=== PATIENT | female | born 1980 | race Caucasian/White ===

== ENCOUNTER 2019-09-25 10:18 | Inpatient (IN) | payer MEDICARE, OTHER ==
[~2019-09-25] VITALS: Ht 167.6 cm; Wt 63.7 kg
[2019-09-25] MEDS ORDERED: HYDROmorphone 2 MG/ML VIAL IV ONE ×3 (11:00→14:30)
[2019-09-25 11:30] LABS: BASO # 0.1 x10^3/uL (0.0-0.2); BASO % 1 % (0-3); EOS # 0.2 x10^3/uL (0.0-0.7); EOS % 2 % (0-3); HEMOGLOBIN 12.7 g/dL (12.0-15.5); LYMPH % 26 % (24-48); MEAN CORPUSCULAR HEMOGLOBIN 30 pg (25-35); MEAN CORPUSCULAR HGB CONC 34 g/dL (31-37); MEAN CORPUSCULAR VOLUME 91 fL (79-100); MONO % 9 % (0-9); NEUT # 7.1 x10^3/uL (1.8-7.7); NEUT % 62 % (31-73); PLATELET COUNT 274 x10^3/uL (140-400); RED BLOOD COUNT 4.19 x10^6/uL (3.50-5.40); RED CELL DISTRIBUTION WIDTH 13.7 % (11.5-14.5); WHITE BLOOD COUNT 11.5 x10^3/uL (4.0-11.0)
--- NOTE | 2019-09-25 11:38 | RAD ---
DUPLEX SONOGRAPHY OF THE PERIPHERAL ARTERIAL SYSTEM OF THE LEFT LOWER EXTREMITY Clinical indications: Left foot pain and coldness with decreased capillary refill. No palpable pulses. Findings: Duplex sonography of the peripheral arterial system of the left lower extremity including mercado scale and color flow and spectral waveform analysis was performed.Triphasic and biphasic waveforms are seen. The left peroneal artery is not visualized and therefore may be occluded. No significant stenosis is seen elsewhere. The measurements were performed using the NASCET criteria. Peak systolic flow velocities are as follows: Left leg: common femoral artery- 178 cm/sec, profunda femoral artery -108 cm/sec, proximal superficial femoral artery- 141cm/sec, mid superficial femoral artery- 118 cm/sec, distal superficial femoral artery- 126 cm/sec, popliteal artery -72 cm/sec, proximal posterior tibial artery -57 cm/sec, distal posterior tibial artery- 32 cm/sec, peroneal artery -0 cm/sec, anterior tibial artery -63 cm/sec, dorsalis pedis artery- 38 cm/sec. Impression: Left peroneal artery occlusion. Electronically signed by: Vinnie Love MD (09/25/2019 11:35 AM) [facility]
[2019-09-25 11:41] LABS: CALCIUM 9.1 mg/dL (8.5-10.1); CREATININE 0.6 mg/dL (0.6-1.0); GFR 113.1; POTASSIUM 3.7 mmol/L (3.5-5.1)
--- NOTE | 2019-09-25 11:46 | PHYS DOC ---
Past Medical History Past Medical History: Other Additional Past Medical Histor: ALL, NEUOPATHY, DDD, SCIATICA Past Surgical History: Cancer Surgery, Cholecystectomy, Other Additional Past Surgical Histo: GASTRIC BYPASS Smoking Status: Current Every Day Smoker Alcohol Use: None Adult General Chief Complaint Chief Complaint: FOOT INJURY PAIN HPI HPI Patient is a 38 year old female who presents to the emergency Department today with complaints of increased left foot swelling and pain and inability to move left ankle or left foot. Patient states that the symptoms first started about 3 weeks ago, she states at that time she was unable to move her foot. Patient states she was seen at [facility] a week ago and had ultrasound was told there was no blood clot. She currently rates her pain a 7 out of 10 on the pain scale she denies any alleviating factors. The pain increases with palpation. Patient states she has tried taking her Dilaudid at home without any relief of her pain. Pt reports a hx of ALL, neuropathy, DDD, and sciatica. She denies any known injury. Review of Systems Review of Systems Constitutional: Denies fever or chills [] Eyes: Denies redness, or eye pain [] HENT: Denies nasal congestion or sore throat [] Respiratory: Denies cough or shortness of breath [] Cardiovascular: No additional information not addressed in HPI [] GI: Denies abdominal pain, nausea, vomiting, or diarrhea [] Musculoskeletal: Denies back pain; see HPI[] Integument: Denies rash or skin lesions; see HPI[] Neurologic: Denies headache, see HPI All other systems were reviewed and found to be within normal limits, except as documented in this note. Current Medications Current Medications Current Medications Medications (Trade) Dose Ordered Sig/Barbie Start Time Stop Time Status Last Admin Dose Admin Hydromorphone HCl (Dilaudid) 1 mg 1X ONCE 09/25/19 11:00 09/25/19 11:01 DC 09/25/19 11:35 1 MG Allergies Allergies Allergies Coded Allergies Type Severity Reaction Last Updated Verified aspirin Allergy Unknown 09/25/19 Yes ibuprofen Allergy Unknown 09/25/19 Yes Physical Exam Physical Exam Constitutional: Well developed, well nourished, no acute distress, non-toxic appearance, appears to be in pain [] HENT: Normocephalic, atraumatic, bilateral external ears normal, nose normal. [] Eyes: PERRLA, EOMI, conjunctiva normal, no discharge. [] Neck: Normal range of motion,no stridor. [] Cardiovascular:Heart rate regular rhythm, no murmur [] Lungs & Thorax: Bilateral breath sounds clear to auscultation, Respirations even and unlabored, no retractions, no respiratory distress [] Skin: Warm, dry; LLE mottled and cool to touch, cap refill >3 seconds Extremities: LLE tender to palpation, no obvious deformity, no palpable pedal or posterial tibial pulses, strong doppler pedal and posterior tibial pulses, pt unable to move L foot or L ankle, 2+ edema [] Neurologic: Alert and oriented X 3, no focal deficits noted. [] Psychologic: Affect normal, judgement normal, mood normal. [] Current Patient Data Vital Signs Vital Signs Date Time Temp Pulse Resp B/P (MAP) Pulse Ox O2 Delivery O2 Flow Rate FiO2 09/25/19 12:05 18 98 Room Air 09/25/19 12:00 90 127/74 (91) 09/25/19 10:43 98.4 98.4 Lab Values Laboratory Tests Test 09/25/19 11:19 09/25/19 11:20 White Blood Count 11.5 x10^3/uL (4.0-11.0) H Red Blood Count 4.19 x10^6/uL (3.50-5.40) Hemoglobin 12.7 g/dL (12.0-15.5) Hematocrit 38.0 % (36.0-47.0) Mean Corpuscular Volume 91 fL (79-100) Mean Corpuscular Hemoglobin 30 pg (25-35) Mean Corpuscular Hemoglobin Concent 34 g/dL (31-37) Red Cell Distribution Width 13.7 % (11.5-14.5) Platelet Count 274 x10^3/uL (140-400) Neutrophils (%) (Auto) 62 % (31-73) Lymphocytes (%) (Auto) 26 % (24-48) Monocytes (%) (Auto) 9 % (0-9) Eosinophils (%) (Auto) 2 % (0-3) Basophils (%) (Auto) 1 % (0-3) Neutrophils # (Auto) 7.1 x10^3/uL (1.8-7.7) Lymphocytes # (Auto) 3.0 x10^3/uL (1.0-4.8) Monocytes # (Auto) 1.0 x10^3/uL (0.0-1.1) Eosinophils # (Auto) 0.2 x10^3/uL (0.0-0.7) Basophils # (Auto) 0.1 x10^3/uL (0.0-0.2) Prothrombin Time 12.6 SEC (11.7-14.0) Prothrombin Time INR 1.0 (0.8-1.1) Activated Partial Thromboplast Time 30 SEC (24-38) Sodium Level 139 mmol/L (136-145) Potassium Level 3.7 mmol/L (3.5-5.1) Chloride Level 103 mmol/L (98-107) Carbon Dioxide Level 27 mmol/L (21-32) Anion Gap 9 (6-14) Blood Urea Nitrogen 7 mg/dL (7-20) Creatinine 0.6 mg/dL (0.6-1.0) Estimated GFR (Cockcroft-Gault) 113.1 BUN/Creatinine Ratio 12 (6-20) Glucose Level 91 mg/dL (70-99) Calcium Level 9.1 mg/dL (8.5-10.1) Total Bilirubin 0.8 mg/dL (0.2-1.0) Aspartate Amino Transferase (AST) 16 U/L (15-37) Alanine Aminotransferase (ALT) 22 U/L (14-59) Alkaline Phosphatase 51 U/L (46-116) Total Protein 6.7 g/dL (6.4-8.2) Albumin 3.3 g/dL (3.4-5.0) L Albumin/Globulin Ratio 1.0 (1.0-1.7) Urine Test Negative (NEG) Laboratory Tests 09/25/19 11:19 Laboratory Tests 09/25/19 11:19 EKG EKG [] Radiology/Procedures Radiology/Procedures PROCEDURE: DUPLEX LOWER EXT ARTERIAL LEFT DUPLEX SONOGRAPHY OF THE PERIPHERAL ARTERIAL SYSTEM OF THE LEFT LOWER EXTREMITY Clinical indications: Left foot pain and coldness with decreased capillary refill. No palpable pulses. Findings: Duplex sonography of the peripheral arterial system of the left lower extremity including mercado scale and color flow and spectral waveform analysis was performed.Triphasic and biphasic waveforms are seen. The left peroneal artery is not visualized and therefore may be occluded. No significant stenosis is seen elsewhere. The measurements were performed using the NASCET criteria. Peak systolic flow velocities are as follows: Left leg: common femoral artery- 178 cm/sec, profunda femoral artery -108 cm/sec, proximal superficial femoral artery- 141cm/sec, mid superficial femoral artery- 118 cm/sec, distal superficial femoral artery- 126 cm/sec, popliteal artery -72 cm/sec, proximal posterior tibial artery -57 cm/sec, distal posterior tibial artery- 32 cm/sec, peroneal artery -0 cm/sec, anterior tibial artery -63 cm/sec, dorsalis pedis artery- 38 cm/sec. Impression: Left peroneal artery occlusion.[] Course & Med Decision Making Course & Med Decision Making Pertinent Labs and Imaging studies reviewed. (See chart for details) 1200- Spoke with Dr. Allison and advised of peroneal artery occlusion of LLE, mottled appearance, non-palpable pedal and posterior tibial pulses; will order heparin drip per protocol and admit patient to hospitalist. [address] Peterson who is the admitting physician, and care was assumed following discussion of patient. Patient's vital signs stable. Patient remains afebrile, appears nontoxic, respirations even and unlabored. Patient will be admitted to the ICU floor. Patient's case and plan of care also discussed with Dr. Vines 1255- Dr. Bellamy at bedside with patient will order CT angio of abd/pelvis/lower extremities. [] Dragon Disclaimer Dragon Disclaimer This electronic medical record was generated, in whole or in part, using a voice recognition dictation system. Departure Departure Impression: Primary Impression: Peroneal artery occlusion, right Additional Impression: Right leg pain Disposition: ADMITTED INPATIENT Admitting Physician: SAMANTHA (Nicholas) Condition: STABLE Referrals: RONEL LEWIS DO (PCP) Problem Qualifiers CONNIE REYES APRN Sep 25, 2019 11:46
[2019-09-25 11:47] LABS: ALBUMIN 3.3 g/dL (3.4-5.0); TOTAL BILIRUBIN 0.8 mg/dL (0.2-1.0); TOTAL PROTEIN 6.7 g/dL (6.4-8.2)
[2019-09-25 11:54] LABS: PROTHROMBIN TIME PATIENT 12.6 SEC (11.7-14.0)
[2019-09-25] MEDS ORDERED: HEPARIN for IV BOLUS 10,000 UNIT/10 ML VIAL. IV ONE (12:15)
[2019-09-25] MEDS ORDERED: HEPARIN for IV BOLUS 10,000 UNIT/10 ML VIAL. IV PRN (12:15)
--- NOTE | 2019-09-25 12:44 | RAD ---
Left lower extremity venous Doppler dated 09/25/2019. No comparison available. Clinical data indication: Left leg pain. FINDINGS: Grayscale, color-flow and spectral waveform analysis performed to include the deep venous system of the left lower extremity. There is normal compressibility, phasicity and augmentation of flow throughout. No filling defects are seen. IMPRESSION: No evidence of left lower extremity deep vein thrombosis. Electronically signed by: Albert Medina MD (09/25/2019 12:41 PM) [id number]
[2019-09-25] MEDS: HEPARIN 25,000UTS/250ML PREMIX 250 ML IV PRN (12:59)
[2019-09-25 13:25] LABS: U PREG PATIENT NEGATIVE (NEG)
[2019-09-25] MEDS ORDERED: IOHEXOL 350 MG/ML 100 ML VIAL. IV ONE (14:00)
[2019-09-25] MEDS ORDERED: CONTRAST GIVEN. MC PRN (14:00)
[2019-09-25] MEDS ORDERED: ACETAMINOPHEN 500 MG TABLET PO ONE (14:45)
--- NOTE | 2019-09-25 15:21 | PDOC2 ---
CONSULT Date of Consult Date of Consult DATE: 09/25/19 TIME: 15:06 Reason for Consult Reason for Consult: LLE pain, peroneal occlusion Identification/Chief Complaint Chief Complaint LLE pain Source Source: Patient History of Present Illness Reason for Visit: 38-year old female with significant medical history of chronic back problems on high doses of chronic pain meds, neuropathy, disc degeneration of back and bilateral hips per report, sciatica. She presents with LLE pain, swelling and paralysis x3 weeks. First noted as paralysis three weeks ago, she began walking with crutches and reportedly went into her doctor, [facility] and also her pain doctor for evaluation of this. She reports they noted elevated Ddimer in ER, however only did venous duplex and was negative ? per report. Since onset she has had progressive swelling and pain with some associated bruising around her ankle and back of her lower leg. She denies history of blood clots, bleeding disorders. She denies family history of same, does have family history of stroke. Past Medical History Past Medical History As in HPI Past Surgical History Past Surgical History No vascular surgeries. Family History Family History Stroke, fathers side Current Medications Current Medications Current Medications Hydromorphone HCl (Dilaudid) 1 mg 1X ONCE IV Last administered on 09/25/19at 11:35; Start 09/25/19 at 11:00; Stop 09/25/19 at 11:01; Status DC Heparin Sodium (Porcine) (Heparin Sodium) 4,700 unit 1X ONCE IV Last administered on 09/25/19at 12:40; Start 09/25/19 at 12:15; Stop 09/25/19 at 12:25; Status DC Heparin Sodium/ Dextrose 250 ml @ 9.44 mls/hr CONT PRN IV PER PROTOCOL Last administered on 09/25/19at 12:59; Start 09/25/19 at 12:15 Heparin Sodium (Porcine) (Heparin Sodium) 1,750 unit PRN Q6HRS PRN IV FOR UFH LEVEL LESS THAN 0.2; Start 09/25/19 at 12:15 Heparin Sodium (Porcine) (Heparin Sodium) 900 unit PRN Q6HRS PRN IV FOR UFH LEVEL 0.2 - 0.29; Start 09/25/19 at 12:15 Hydromorphone HCl (Dilaudid) 1 mg 1X ONCE IV Last administered on 09/25/19at 12:38; Start 09/25/19 at 12:30; Stop 09/25/19 at 12:31; Status DC Iohexol (Omnipaque 350 Mg/ml) 95 ml 1X ONCE IV Last administered on 09/25/19at 13:53; Start 09/25/19 at 14:00; Stop 09/25/19 at 14:01; Status DC Info (CONTRAST GIVEN -- Rx MONITORING) 1 each PRN DAILY PRN MC SEE COMMENTS; Start 09/25/19 at 14:00; Stop 09/27/19 at 13:59 Hydromorphone HCl (Dilaudid) 1 mg 1X ONCE IV Last administered on 09/25/19at 14:40; Start 09/25/19 at 14:30; Stop 09/25/19 at 14:31; Status DC Hydromorphone HCl (Dilaudid) 8 mg PRN Q4HRS PRN PO PAIN; Start 09/25/19 at 14:45; Status UNV Acetaminophen (Tylenol) 1,000 mg 1X ONCE PO ; Start 09/25/19 at 14:45; Stop 09/25/19 at 14:46; Status DC Acetaminophen (Tylenol) 650 mg PRN Q6HRS PRN PO pain; Start 09/25/19 at 14:45 Gabapentin (Neurontin) 800 mg TID PO ; Start 09/25/19 at 14:45; Status UNV Cyclobenzaprine HCl (Flexeril) 10 mg PRN Q6HRS PRN PO MUSCLE SPASMS; Start 09/25/19 at 14:45; Status UNV Allergies Allergies: Coded Allergies: aspirin (Verified Allergy, Unknown, 09/25/19) ibuprofen (Verified Allergy, Unknown, 09/25/19) ROS General: YES: Fatigue; No: Chills HEENT: No: Heacaches Hematological and Lymphatic: YES: Brusing; No: Bleeding Problems, Blood Clots, Pallor Respiratory: No: Cough, Hemoptysis, Shortness of breath Cardiovascular: yes Edema; No Chest Pain, No Palpitations Gastrointestinal: No Nausea, No Vomiting, No Abdominal Pain Genitourinary: YES Incontinence Musculoskeletal: Yes Gait Disturbance Neurological: Yes Gait Disturbance Skin: No Mottling, No Rash, No Skin Lesion Changes Physical Exam General: Alert, Oriented X3, Cooperative, mild distress (Intermittent crying) HEENT: Atraumatic Lungs: Normal air movement Heart: Regular rate Abdomen: Soft, No tenderness Extremities: No cyanosis, Other (Bilateral femoral pulses normal, left foot mild swelling, PT and DP signals strong with doppler, foot warm. Right foot warm. She has exquisite tenderness to Left lower leg from knee down, including to light touch, there is mild diffuse associated redness to lower leg and mild diffuse edema from knee down. ) Skin: No breakdown, No significant lesion Neuro: Other (Right LE strength normal, LLE dorsi and plantar flexion strength 1/5, can slightly wiggle toes. Left foot with limited sensation compared to right. ) Psych/Mental Status: Mental status NL, Mood NL MUSCULOSKELETAL: Other (Swelling LLE, strength as noted above) Vitals VITALS Vital Signs Date Time Temp Pulse Resp B/P (MAP) Pulse Ox O2 Delivery O2 Flow Rate FiO2 09/25/19 14:40 18 Room Air 09/25/19 13:00 118/81 (93) 09/25/19 12:00 90 97 09/25/19 10:43 98.4 98.4 Labs Labs Laboratory Tests Test 09/25/19 11:19 09/25/19 11:20 White Blood Count 11.5 x10^3/uL (4.0-11.0) Red Blood Count 4.19 x10^6/uL (3.50-5.40) Hemoglobin 12.7 g/dL (12.0-15.5) Hematocrit 38.0 % (36.0-47.0) Mean Corpuscular Volume 91 fL (79-100) Mean Corpuscular Hemoglobin 30 pg (25-35) Mean Corpuscular Hemoglobin Concent 34 g/dL (31-37) Red Cell Distribution Width 13.7 % (11.5-14.5) Platelet Count 274 x10^3/uL (140-400) Neutrophils (%) (Auto) 62 % (31-73) Lymphocytes (%) (Auto) 26 % (24-48) Monocytes (%) (Auto) 9 % (0-9) Eosinophils (%) (Auto) 2 % (0-3) Basophils (%) (Auto) 1 % (0-3) Neutrophils # (Auto) 7.1 x10^3/uL (1.8-7.7) Lymphocytes # (Auto) 3.0 x10^3/uL (1.0-4.8) Monocytes # (Auto) 1.0 x10^3/uL (0.0-1.1) Eosinophils # (Auto) 0.2 x10^3/uL (0.0-0.7) Basophils # (Auto) 0.1 x10^3/uL (0.0-0.2) Prothrombin Time 12.6 SEC (11.7-14.0) Prothromb Time International Ratio 1.0 (0.8-1.1) Activated Partial Thromboplast Time 30 SEC (24-38) Sodium Level 139 mmol/L (136-145) Potassium Level 3.7 mmol/L (3.5-5.1) Chloride Level 103 mmol/L (98-107) Carbon Dioxide Level 27 mmol/L (21-32) Anion Gap 9 (6-14) Blood Urea Nitrogen 7 mg/dL (7-20) Creatinine 0.6 mg/dL (0.6-1.0) Estimated GFR (Cockcroft-Gault) 113.1 BUN/Creatinine Ratio 12 (6-20) Glucose Level 91 mg/dL (70-99) Calcium Level 9.1 mg/dL (8.5-10.1) Total Bilirubin 0.8 mg/dL (0.2-1.0) Aspartate Amino Transf (AST/SGOT) 16 U/L (15-37) Alanine Aminotransferase (ALT/SGPT) 22 U/L (14-59) Alkaline Phosphatase 51 U/L (46-116) Total Protein 6.7 g/dL (6.4-8.2) Albumin 3.3 g/dL (3.4-5.0) Albumin/Globulin Ratio 1.0 (1.0-1.7) Urine Test Negative (NEG) Laboratory Tests Test 09/25/19 11:19 09/25/19 11:20 White Blood Count 11.5 x10^3/uL (4.0-11.0) Red Blood Count 4.19 x10^6/uL (3.50-5.40) Hemoglobin 12.7 g/dL (12.0-15.5) Hematocrit 38.0 % (36.0-47.0) Mean Corpuscular Volume 91 fL (79-100) Mean Corpuscular Hemoglobin 30 pg (25-35) Mean Corpuscular Hemoglobin Concent 34 g/dL (31-37) Red Cell Distribution Width 13.7 % (11.5-14.5) Platelet Count 274 x10^3/uL (140-400) Neutrophils (%) (Auto) 62 % (31-73) Lymphocytes (%) (Auto) 26 % (24-48) Monocytes (%) (Auto) 9 % (0-9) Eosinophils (%) (Auto) 2 % (0-3) Basophils (%) (Auto) 1 % (0-3) Neutrophils # (Auto) 7.1 x10^3/uL (1.8-7.7) Lymphocytes # (Auto) 3.0 x10^3/uL (1.0-4.8) Monocytes # (Auto) 1.0 x10^3/uL (0.0-1.1) Eosinophils # (Auto) 0.2 x10^3/uL (0.0-0.7) Basophils # (Auto) 0.1 x10^3/uL (0.0-0.2) Prothrombin Time 12.6 SEC (11.7-14.0) Prothromb Time International Ratio 1.0 (0.8-1.1) Activated Partial Thromboplast Time 30 SEC (24-38) Sodium Level 139 mmol/L (136-145) Potassium Level 3.7 mmol/L (3.5-5.1) Chloride Level 103 mmol/L (98-107) Carbon Dioxide Level 27 mmol/L (21-32) Anion Gap 9 (6-14) Blood Urea Nitrogen 7 mg/dL (7-20) Creatinine 0.6 mg/dL (0.6-1.0) Estimated GFR (Cockcroft-Gault) 113.1 BUN/Creatinine Ratio 12 (6-20) Glucose Level 91 mg/dL (70-99) Calcium Level 9.1 mg/dL (8.5-10.1) Total Bilirubin 0.8 mg/dL (0.2-1.0) Aspartate Amino Transf (AST/SGOT) 16 U/L (15-37) Alanine Aminotransferase (ALT/SGPT) 22 U/L (14-59) Alkaline Phosphatase 51 U/L (46-116) Total Protein 6.7 g/dL (6.4-8.2) Albumin 3.3 g/dL (3.4-5.0) Albumin/Globulin Ratio 1.0 (1.0-1.7) Urine Test Negative (NEG) Assessment/Plan Assessment/Plan Left peroneal artery occlusion via US 39-year-old female with LLE weakness and pain x 3 weeks. It does not seem that the peroneal occlusion would be contributing to her symptoms with patent anterior tib and posterior tib arteries and strong doppler signals in her foot, this is very unlikely to be ischemic symptoms. However she does have mild LLE edema, erythema and exquisite tenderness. Her calf is soft, not likely compartment syndrome, venous duplex was negative for DVT. I also considered complex regional pain syndrome. She has been started on heparin and is being admitted. Will await CTA images to review and discuss with surgeon who will also see patient. MANUEL MARROQUIN Sep 25, 2019 15:21
--- NOTE | 2019-09-25 15:24 | RAD ---
CTA abdomen pelvis and bilateral lower extremity runoff dated 09/25/2019. No comparison available. CLINICAL INDICATION: Left lower extremity clot. Inability to move. Leg pain. Foot pain and numbness. TECHNIQUE: Contiguous axial imaging of the abdomen pelvis and bilateral lower extremity performed following the intravenous administration of 95 cc Omnipaque 350. Study was performed as dedicated CTA with thin cut coronal and sagittal MIPS reconstructions and 3-D rotational reconstruction. One or more of the following individualized dose reduction techniques were utilized for this examination: 1. Automated exposure control 2. Adjustment of the mA and/or kV according to patient size 3. Use of iterative reconstruction technique FINDINGS: Contrast bolus is adequate. The abdominal aorta is normal in caliber. There is some luminal irregularity throughout suggestive of mild atherosclerotic plaquing. No evidence of aneurysm. The celiac artery and SMA are patent. Bilateral renal arteries are patent. Suspected mild narrowing of the GAY at its origin. The bilateral common iliac arteries are patent. There is mild calcific plaque at the right iliac bifurcation. No significant stenosis of the internal or external iliac arteries. The left common femoral artery and profundus femoris are patent. No significant stenosis of the left superficial femoral artery or popliteal artery. There is early origin of the anterior tibial artery at the knee which is otherwise patent. The tibioperoneal trunk, posterior tibial and peroneal arteries are not well evaluated due to asymmetric venous opacification of the left calf. The posterior tibial artery and anterior tibial artery are patent to the ankle. The dorsalis pedis is patent. The peroneal artery on the left is somewhat small and poorly visualized but otherwise grossly patent. There is some asymmetric edema within the left calf musculature and the left calf subcutaneous tissues with some prominent venous collaterals. The right common femoral artery and profundus femoris are patent. Right superficial femoral artery and popliteal artery are patent. There is a three-vessel runoff of the right calf. Limited images of the lung bases are clear. Heart size within normal limits. No pleural or pericardial effusion. Calcified granuloma at the left base. Liver, spleen, pancreas, adrenal glands and kidneys are unremarkable. No hydronephrosis. The gallbladder is surgically absent. Postoperative changes of the stomach. GI tract is normal in caliber. No wall thickening. No inflammatory changes in the mesentery. The appendix is normal in caliber. No ascites or lymphadenopathy. Images of pelvis show nondistended urinary bladder. Rim-enhancing cyst at the right ovary measures 3.2 cm. There is a small amount of free fluid. No pelvic adenopathy. Bone windows show no acute findings. Mild lower lumbar spondylosis. IMPRESSION: 1. No evidence of hemodynamically significant arterial stenosis. The dorsalis pedis and posterior tibial arteries of the left ankle are patent. The left peroneal artery is somewhat small and difficult to evaluate due to premature venous filling on the left but is otherwise grossly patent. 2. There is some asymmetric edema within the left calf musculature and subcutaneous tissues with prominent venous collaterals. Consider venous reflux or other inflammatory process. 3. Premature atherosclerotic changes of the abdominal aorta and right iliac system. 4. There is a 3.2 cm right ovarian cyst. Small amount of free pelvic fluid. Electronically signed by: Albert Medina MD (09/25/2019 3:09 PM) [email or web address]
[2019-09-25] MEDS: ACETAMINOPHEN 325 MG TABLET. PO PRN (16:03)
[2019-09-25] MEDS: CYCLOBENZAPRINE 10 MG TABLET. PO PRN (16:03)
[2019-09-25] MEDS: HYDROmorphone 4 MG TABLET PO PRN ×2 (16:21→20:21)
[2019-09-25] MEDS: GABAPENTIN 400 MG CAPSULE. PO SCH ×2 (16:21→20:19)
--- NOTE | 2019-09-25 16:41 | PDOC1 ---
History and Physical Date of Admission Date of Admission DATE: 09/25/19 TIME: 16:39 Source Source: Caregiver (mom), Chart review, Patient History of Present Illness History of Present Illness Carol is a 38 year old female who presents to the emergency Department today with complaints of increased left foot swelling and pain and inability to move left ankle or left foot. she has worsning pain over 3 weeks, but now was unable to move her foot. fPatient states she was seen at [facility] ER a week ago and had ultrasound was told there was no blood clot. I reviewed that note with her how she talked to Dr. Ken. this AM, foot was cold, she was unable to move the leg, and complaisn of 10/10 pain she went into detail about her facundo regimen ,how she has been on 120 of methadone before, and how her pain is different and no one usually understands her pain. she follows pain management clinic at [facility], reports taking 8mg dilaudid TID, I cannot find that record int he terezart, . Pt reports a hx of ALL, neuropathy, DDD, and sciatica. Past Medical History Past Medical History chronic pain, lumbar disk disease, large amount of opiate use for pain control, narcotic dependence Family History Family History: No Significant Social History Smoke: <1 pack per day ALCOHOL: none Drugs: None Current Medications Current Medications Current Medications Hydromorphone HCl (Dilaudid) 1 mg 1X ONCE IV Last administered on 09/25/19at 11:35; Start 09/25/19 at 11:00; Stop 09/25/19 at 11:01; Status DC Heparin Sodium (Porcine) (Heparin Sodium) 4,700 unit 1X ONCE IV Last administered on 09/25/19at 12:40; Start 09/25/19 at 12:15; Stop 09/25/19 at 12:25; Status DC Heparin Sodium/ Dextrose 250 ml @ 9.44 mls/hr CONT PRN IV PER PROTOCOL Last administered on 09/25/19at 12:59; Start 09/25/19 at 12:15 Heparin Sodium (Porcine) (Heparin Sodium) 1,750 unit PRN Q6HRS PRN IV FOR UFH LEVEL LESS THAN 0.2; Start 09/25/19 at 12:15 Heparin Sodium (Porcine) (Heparin Sodium) 900 unit PRN Q6HRS PRN IV FOR UFH LEVEL 0.2 - 0.29; Start 09/25/19 at 12:15 Hydromorphone HCl (Dilaudid) 1 mg 1X ONCE IV Last administered on 09/25/19at 12:38; Start 09/25/19 at 12:30; Stop 09/25/19 at 12:31; Status DC Iohexol (Omnipaque 350 Mg/ml) 95 ml 1X ONCE IV Last administered on 09/25/19at 13:53; Start 09/25/19 at 14:00; Stop 09/25/19 at 14:01; Status DC Info (CONTRAST GIVEN -- Rx MONITORING) 1 each PRN DAILY PRN MC SEE COMMENTS; Start 09/25/19 at 14:00; Stop 09/27/19 at 13:59 Hydromorphone HCl (Dilaudid) 1 mg 1X ONCE IV Last administered on 09/25/19at 14:40; Start 09/25/19 at 14:30; Stop 09/25/19 at 14:31; Status DC Hydromorphone HCl (Dilaudid) 8 mg PRN Q4HRS PRN PO SEVERE PAIN Last administered on 09/25/19at 16:21; Start 09/25/19 at 14:45 Acetaminophen (Tylenol) 1,000 mg 1X ONCE PO ; Start 09/25/19 at 14:45; Stop 09/25/19 at 14:46; Status DC Acetaminophen (Tylenol) 650 mg PRN Q6HRS PRN PO pain Last administered on 09/25/19at 16:03; Start 09/25/19 at 14:45 Gabapentin (Neurontin) 800 mg TID PO Last administered on 09/25/19at 16:21; Start 09/25/19 at 14:45 Cyclobenzaprine HCl (Flexeril) 10 mg PRN Q6HRS PRN PO MUSCLE SPASMS Last administered on 09/25/19at 16:03; Start 09/25/19 at 14:45 Allergies Allergies: Coded Allergies: aspirin (Verified Allergy, Unknown, 09/25/19) ibuprofen (Verified Allergy, Unknown, 09/25/19) ROS General: YES: Fatigue; No: Chills, Night Sweats, Malaise, Appetite, Other PSYCHOLOGICAL ROS: YES: Anxiety, Irritablity, Sleep disturbances; No: Behavioral Disorder, Concentration difficultie, Decreased libido, Depression, Disorientation, Hallucinations, Hostility, Memory difficulties, Mood Swings, Obsessive thoughts, Physical abuse, Sexual abuse, Suicidal ideation, Other Eyes: No Blurry vision, No Decreased vision, No Double vision, No Dry eyes, No Excessive tearing, No Eye Pain, No Itchy Eyes, No Loss of vision, No Photophobia, No Scotomata, No Uses contacts, No Uses glasses, No Other HEENT: No: Heacaches, Visual Changes, Hearing change, Nasal congestion, Nasal discharge, Oral lesions, Sinus pain, Sore Throat, Epistaxis, Sneezing, Snoring, Tinnitus, Vertigo, Vocal changes, Other Respiratory: No: Cough, Hemoptysis, Orthopnea, Pleuritic Pain, Shortness of breath, SOB with excertion, Sputum Changes, Stridor, Tachypnea, Wheezing, Other Cardiovascular: No Chest Pain, No Palpitations, No Orthopnea, No Paroxysmal Noc. Dyspnea, No Edema, No Lt Headedness, No Other Gastrointestinal: No Nausea, No Vomiting, No Abdominal Pain, No Diarrhea, No Constipation, No Melena, No Hematochezia, No Other Musculoskeletal: Yes Gait Disturbance, Yes Joint Swelling, Yes Muscle Pain, Yes Muscular Weakness, Yes Pain In: (leg, back) Neurological: Yes Gait Disturbance Skin: No Dry Skin, No Eczema, No Hair Changes, No Lumps, No Mole Changes, No Mottling, No Nail Changes, No Pruritus, No Rash, No Skin Lesion Changes, No Other, No Acne Physical Exam General: Alert, Cooperative, moderate distress, severe distress HEENT: PERRLA, EOMI Lungs: Clear to auscultation, Normal air movement Heart: no gallops Abdomen: Normal bowel sounds, Soft Extremities: No cyanosis, Other (was cold left lower leg, then warmed later and was hyperemic ) Skin: No breakdown Neuro: Normal speech, Sensation intact Psych/Mental Status: Other (upset, ) Vitals Vitals Vital Signs Date Time Temp Pulse Resp B/P (MAP) Pulse Ox O2 Delivery O2 Flow Rate FiO2 09/25/19 14:40 18 Room Air 09/25/19 13:08 97 09/25/19 13:00 118/81 (93) 09/25/19 12:00 90 09/25/19 10:43 98.4 98.4 Labs Labs Laboratory Tests Test 09/25/19 11:19 09/25/19 11:20 White Blood Count 11.5 x10^3/uL (4.0-11.0) Red Blood Count 4.19 x10^6/uL (3.50-5.40) Hemoglobin 12.7 g/dL (12.0-15.5) Hematocrit 38.0 % (36.0-47.0) Mean Corpuscular Volume 91 fL (79-100) Mean Corpuscular Hemoglobin 30 pg (25-35) Mean Corpuscular Hemoglobin Concent 34 g/dL (31-37) Red Cell Distribution Width 13.7 % (11.5-14.5) Platelet Count 274 x10^3/uL (140-400) Neutrophils (%) (Auto) 62 % (31-73) Lymphocytes (%) (Auto) 26 % (24-48) Monocytes (%) (Auto) 9 % (0-9) Eosinophils (%) (Auto) 2 % (0-3) Basophils (%) (Auto) 1 % (0-3) Neutrophils # (Auto) 7.1 x10^3/uL (1.8-7.7) Lymphocytes # (Auto) 3.0 x10^3/uL (1.0-4.8) Monocytes # (Auto) 1.0 x10^3/uL (0.0-1.1) Eosinophils # (Auto) 0.2 x10^3/uL (0.0-0.7) Basophils # (Auto) 0.1 x10^3/uL (0.0-0.2) Prothrombin Time 12.6 SEC (11.7-14.0) Prothromb Time International Ratio 1.0 (0.8-1.1) Activated Partial Thromboplast Time 30 SEC (24-38) Sodium Level 139 mmol/L (136-145) Potassium Level 3.7 mmol/L (3.5-5.1) Chloride Level 103 mmol/L (98-107) Carbon Dioxide Level 27 mmol/L (21-32) Anion Gap 9 (6-14) Blood Urea Nitrogen 7 mg/dL (7-20) Creatinine 0.6 mg/dL (0.6-1.0) Estimated GFR (Cockcroft-Gault) 113.1 BUN/Creatinine Ratio 12 (6-20) Glucose Level 91 mg/dL (70-99) Calcium Level 9.1 mg/dL (8.5-10.1) Total Bilirubin 0.8 mg/dL (0.2-1.0) Aspartate Amino Transf (AST/SGOT) 16 U/L (15-37) Alanine Aminotransferase (ALT/SGPT) 22 U/L (14-59) Alkaline Phosphatase 51 U/L (46-116) Total Protein 6.7 g/dL (6.4-8.2) Albumin 3.3 g/dL (3.4-5.0) Albumin/Globulin Ratio 1.0 (1.0-1.7) Urine Test Negative (NEG) Laboratory Tests Test 09/25/19 11:19 09/25/19 11:20 White Blood Count 11.5 x10^3/uL (4.0-11.0) Red Blood Count 4.19 x10^6/uL (3.50-5.40) Hemoglobin 12.7 g/dL (12.0-15.5) Hematocrit 38.0 % (36.0-47.0) Mean Corpuscular Volume 91 fL (79-100) Mean Corpuscular Hemoglobin 30 pg (25-35) Mean Corpuscular Hemoglobin Concent 34 g/dL (31-37) Red Cell Distribution Width 13.7 % (11.5-14.5) Platelet Count 274 x10^3/uL (140-400) Neutrophils (%) (Auto) 62 % (31-73) Lymphocytes (%) (Auto) 26 % (24-48) Monocytes (%) (Auto) 9 % (0-9) Eosinophils (%) (Auto) 2 % (0-3) Basophils (%) (Auto) 1 % (0-3) Neutrophils # (Auto) 7.1 x10^3/uL (1.8-7.7) Lymphocytes # (Auto) 3.0 x10^3/uL (1.0-4.8) Monocytes # (Auto) 1.0 x10^3/uL (0.0-1.1) Eosinophils # (Auto) 0.2 x10^3/uL (0.0-0.7) Basophils # (Auto) 0.1 x10^3/uL (0.0-0.2) Prothrombin Time 12.6 SEC (11.7-14.0) Prothromb Time International Ratio 1.0 (0.8-1.1) Activated Partial Thromboplast Time 30 SEC (24-38) Sodium Level 139 mmol/L (136-145) Potassium Level 3.7 mmol/L (3.5-5.1) Chloride Level 103 mmol/L (98-107) Carbon Dioxide Level 27 mmol/L (21-32) Anion Gap 9 (6-14) Blood Urea Nitrogen 7 mg/dL (7-20) Creatinine 0.6 mg/dL (0.6-1.0) Estimated GFR (Cockcroft-Gault) 113.1 BUN/Creatinine Ratio 12 (6-20) Glucose Level 91 mg/dL (70-99) Calcium Level 9.1 mg/dL (8.5-10.1) Total Bilirubin 0.8 mg/dL (0.2-1.0) Aspartate Amino Transf (AST/SGOT) 16 U/L (15-37) Alanine Aminotransferase (ALT/SGPT) 22 U/L (14-59) Alkaline Phosphatase 51 U/L (46-116) Total Protein 6.7 g/dL (6.4-8.2) Albumin 3.3 g/dL (3.4-5.0) Albumin/Globulin Ratio 1.0 (1.0-1.7) Urine Test Negative (NEG) VTE Prophylaxis Ordered VTE Prophylaxis Devices: No VTE Pharmacological Prophylaxi: Yes Assessment/Plan Assessment/Plan acute left lower leg pain narcotic dependence and chronic pain disorder heparin gtt started, discussed with Dr. Allison, patient seen by her, all images reviewed, may not need heparin gtt, will re-eval in AM ARTERY US, Impression: Left peroneal artery occlusion. CAMILLE PRAKASH MD Sep 25, 2019 16:41
[2019-09-25 16:58] VITALS: BP 109/61
[2019-09-25] MEDS ORDERED: HYDR8TAB29 PO (17:36)
[2019-09-25] MEDS ORDERED: GABA800T5 PO (17:36)
[2019-09-25] MEDS ORDERED: MULT-245 PO (17:36)
[2019-09-25] MEDS ORDERED: BACL20TA PO (17:36)
[2019-09-25] MEDS ORDERED: DOCU-109 PO (17:36)
[2019-09-25] MEDS ORDERED: BUPR150T8 PO (17:36)
[2019-09-25 19:20] VITALS: BP 101/55
[2019-09-25] MEDS: DOCUSATE SODIUM 100 MG CAPSULE. PO SCH (20:19)
[2019-09-25] MEDS: buPROPion SR 150 MG TABLET.SA PO SCH (20:20)
[2019-09-25] MEDS: CYCLOBENZAPRINE 10 MG TABLET. PO SCH (20:20)
[2019-09-25] MEDS: HEPARIN for IV BOLUS 10,000 UNIT/10 ML VIAL. IV PRN (20:57)
[2019-09-25] MEDS ORDERED: BACLOFEN PO SCH (21:00)
[2019-09-25 22:56] VITALS: BP 99/56
[2019-09-26] MEDS: HYDROmorphone 4 MG TABLET PO PRN ×6 (00:53→21:51)
[2019-09-26 03:15] VITALS: BP 93/53
[2019-09-26 07:00] VITALS: BP 92/51
[2019-09-26] MEDS: buPROPion SR 150 MG TABLET.SA PO SCH ×2 (09:09→21:51)
[2019-09-26] MEDS: DOCUSATE SODIUM 100 MG CAPSULE. PO SCH ×2 (09:10→21:51)
[2019-09-26] MEDS: GABAPENTIN 400 MG CAPSULE. PO SCH ×3 (09:10→21:51)
[2019-09-26] MEDS: MULTIVITAMIN with MINERAL TABLET. PO SCH (09:10)
[2019-09-26] MEDS: CYCLOBENZAPRINE 10 MG TABLET. PO SCH ×3 (09:10→21:51)
[2019-09-26] MEDS: HEPARIN for IV BOLUS 10,000 UNIT/10 ML VIAL. IV PRN (10:58)
[2019-09-26 11:00] VITALS: BP 99/52
[2019-09-26] MEDS: HEPARIN 25,000UTS/250ML PREMIX 250 ML IV PRN (12:05)
--- NOTE | 2019-09-26 12:37 | NUR ---
SS following up with discharge planning. SS reviewed pt chart. Pt is self pay pt. HCFS following for self pay status. Pt is from home with spouse and is currently on room air. SS will continue to follow for discharge planning.
[2019-09-26] MEDS: ACETAMINOPHEN 325 MG TABLET. PO PRN (13:19)
[2019-09-26 15:00] VITALS: BP 91/55
--- NOTE | 2019-09-26 15:11 | PDOC ---
[employer] PROGRESS NOTE Chief Complaint Chief Complaint Acute left lower leg pain Narcotic dependence and chronic pain disorder History of Present Illness History of Present Illness Pt seen and examined alongside her . Chart reviewed and care discussed with nursing staff. Pt continues to report severe pain in her foot w/ numbness. She became tearful during our discussion. Vitals/I&O Vitals/I&O: Vital Signs Date Time Temp Pulse Resp B/P (MAP) Pulse Ox O2 Delivery O2 Flow Rate FiO2 09/26/19 11:00 97.9 86 17 99/52 (68) 97 Room Air 97.9 I & O 09/25/19 09/25/19 09/26/19 15:00 23:00 07:00 Intake Total 0 ml 600 ml Output Total 400 ml Balance 0 ml 200 ml Physical Exam General: Alert, Cooperative, moderate distress, severe distress Heart: Regular rate Abdomen: Normal bowel sounds, Soft Extremities: No cyanosis, No edema, Normal pulses, Other (was cold left lower leg, then warmed later and was hyperemic ) Skin: No breakdown Labs Labs: Laboratory Tests Test 09/25/19 18:40 09/26/19 03:00 09/26/19 08:45 Heparin Anti-Xa Act, Unfractionated 0.29 IU/mL (0.30-0.70) 0.31 IU/mL (0.30-0.70) 0.25 IU/mL (0.30-0.70) Review of Systems Review of Systems: Reports severe L foot pain Denies Chest pain or SOA Denies swelling Assessment and Plan Assessmemt and Plan Problems Medical Problems: (1) Peroneal artery occlusion, Left Status: Acute (2) Light leg pain Status: Acute Acute left lower leg/foot pain Narcotic dependence and chronic pain disorder Plan: -Consult Neurology -Discontinue Heparin. Initiate Lovenox 40mg QD for DVT ppx -Continue home medications -Full code Comment Review of Relevant I have reviewed the following items jag (where applicable) has been applied. Medications: Current Medications Medications (Trade) Dose Ordered Sig/Barbie Route PRN Reason Start Time Stop Time Status Last Admin Dose Admin Bupropion HCl (Wellbutrin Sr) 150 mg BID PO 09/25/19 21:00 09/26/19 09:09 Docusate Sodium (Colace) 300 mg BID PO 09/25/19 21:00 09/26/19 09:10 Multivitamins (Thera M Plus) 1 tab DAILY PO 09/26/19 09:00 09/26/19 09:10 Cyclobenzaprine HCl (Flexeril) 10 mg TID PO 09/25/19 21:00 09/26/19 14:24 VALENTINO GALINDO III DO Sep 26, 2019 15:11
[2019-09-26 18:41] VITALS: BP 103/56
[2019-09-26 22:34] VITALS: BP 98/60
[2019-09-27] MEDS: HYDROmorphone 4 MG TABLET PO PRN ×6 (02:20→22:54)
[2019-09-27 02:38] VITALS: BP 107/58
--- NOTE | 2019-09-27 03:04 | NUR ---
PT IN EXTREME AMOUNT OF PAIN. TOOK HER PAIN MEDS AND SHE IS CRYING, FRUSTRATION TO WHY HER LOWER LEG AND FOOT HURT HER SO BAD. SHE RATED 10/10, LCRN
[2019-09-27 05:44] LABS: HEMATOCRIT 34.2 % (36.0-47.0); HEMOGLOBIN 11.5 g/dL (12.0-15.5); RED BLOOD COUNT 3.73 x10^6/uL (3.50-5.40); RED CELL DISTRIBUTION WIDTH 13.3 % (11.5-14.5); WHITE BLOOD COUNT 6.2 x10^3/uL (4.0-11.0)
[2019-09-27] MEDS: CYCLOBENZAPRINE 10 MG TABLET. PO PRN (06:16)
[2019-09-27] MEDS ORDERED: HEPARIN 25,000UTS/250ML PREMIX 250 ML IV PRN (06:45)
[2019-09-27] MEDS ORDERED: HEPARIN for IV BOLUS 10,000 UNIT/10 ML VIAL. IV PRN ×2 (06:45)
[2019-09-27] MEDS: ANTI-COAG MONITOR BY PHARMACY. MC PRN ×2 (06:50→06:52)
--- NOTE | 2019-09-27 06:54 | NUR ---
PT CALLED FOR PAIN MEDS AT 0615. SHE SHOWED ME HER FOOT/ LOWER LEG. AREA IS COLD TO TOUCH AND COULDNT FEEL A PULSE. REPORTED TO DR RASCON SEE ORDERS. LOCATED DOPPLER AND WAS ABLE TO DOPPLER A PULSE. PASSED ON TO BUD REED. BUT STILL A DIFFERENCE IN COLD AREA IS VERY COLD AND REST OF UPPER LEG IS WARM. LCRN
[2019-09-27 07:00] VITALS: BP 112/63
--- NOTE | 2019-09-27 07:55 | RAD ---
Left lower extremity arterial ultrasound History: Cold left foot, no pulse, smoker, heel pain Findings: Multiple grayscale, color, and duplex spectral analysis sonographic images were acquired of the left lower extremity arteries bilaterally. There are triphasic waveforms to the level of the left popliteal artery, biphasic waveforms more distally. No vessel occlusion or focal stenosis is demonstrated. Velocities in cm/sec: Common femoral artery 194 Profunda femoris artery 120 Proximal SFA 166 Mid SFA 179 Distal SFA 143 Popliteal artery 78 Posterior tibial artery 44 proximally and 28 distally Peroneal artery 32 Anterior tibial artery 49 Dorsalis pedis artery 40 Impression: 1. No vessel occlusion or significant focal stenosis is demonstrated. Electronically signed by: Fabrizio Yost MD (09/27/2019 7:52 AM) [id number]
[2019-09-27] MEDS: CYCLOBENZAPRINE 10 MG TABLET. PO SCH ×3 (08:38→21:30)
[2019-09-27] MEDS: buPROPion SR 150 MG TABLET.SA PO SCH ×2 (08:38→21:30)
[2019-09-27] MEDS: GABAPENTIN 400 MG CAPSULE. PO SCH ×3 (08:38→21:30)
[2019-09-27] MEDS: DOCUSATE SODIUM 100 MG CAPSULE. PO SCH ×2 (08:39→21:00)
[2019-09-27] MEDS: MULTIVITAMIN with MINERAL TABLET. PO SCH (08:39)
[2019-09-27] MEDS: NICOTINE 21MG PATCH. TD SCH (09:00)
[2019-09-27] MEDS: ACETAMINOPHEN 325 MG TABLET. PO PRN (10:59)
[2019-09-27 11:00] VITALS: BP 111/61
--- NOTE | 2019-09-27 12:58 | PDOC ---
[employer] PROGRESS NOTE Chief Complaint Chief Complaint Acute left lower leg pain Narcotic dependence and chronic pain disorder History of Present Illness History of Present Illness Pt seen and examined. Chart reviewed and care discussed with nursing staff. Pt continues to have pain in her foot w/ numbness. The pain is under better control today. Vitals/I&O Vitals/I&O: Vital Signs Date Time Temp Pulse Resp B/P (MAP) Pulse Ox O2 Delivery O2 Flow Rate FiO2 09/27/19 11:00 97.8 78 18 111/61 (78) 100 Room Air 97.8 I & O 09/26/19 09/26/19 09/27/19 15:00 23:00 07:00 Intake Total 240 ml 840 ml 520 ml Output Total 1350 ml 500 ml Balance 240 ml -510 ml 20 ml Physical Exam General: Alert, Cooperative, moderate distress, severe distress Heart: Regular rate Abdomen: Normal bowel sounds, Soft Extremities: No cyanosis, No edema, Normal pulses, Other (was cold left lower leg, then warmed later and was hyperemic ) Skin: No breakdown Labs Labs: Laboratory Tests Test 09/27/19 05:21 White Blood Count 6.2 x10^3/uL (4.0-11.0) Red Blood Count 3.73 x10^6/uL (3.50-5.40) Hemoglobin 11.5 g/dL (12.0-15.5) Hematocrit 34.2 % (36.0-47.0) Mean Corpuscular Volume 92 fL (79-100) Mean Corpuscular Hemoglobin 31 pg (25-35) Mean Corpuscular Hemoglobin Concent 34 g/dL (31-37) Red Cell Distribution Width 13.3 % (11.5-14.5) Platelet Count 237 x10^3/uL (140-400) Review of Systems Review of Systems: denies chest pain or SOA denies lower ext swelling Assessment and Plan Assessmemt and Plan Problems Medical Problems: (1) Peroneal artery occlusion, right Status: Acute (2) Right leg pain Status: Acute Acute left lower leg/foot pain Narcotic dependence and chronic pain disorder Plan: -Discontinue Heparin. Initiate Lovenox 40mg QD for DVT ppx -Continue home medications -Plan to discharge if ok with neurology. -Full code Comment Review of Relevant I have reviewed the following items jag (where applicable) has been applied. Medications: Current Medications Medications (Trade) Dose Ordered Sig/Barbie Route PRN Reason Start Time Stop Time Status Last Admin Dose Admin Info (Anti-Coagulation Monitoring By Pharmacy) 1 each PRN DAILY PRN MC SEE COMMENTS 09/27/19 06:45 09/27/19 06:52 VALENTINO GALINDO III DO Sep 27, 2019 12:58
--- NOTE | 2019-09-27 14:25 | PDOC2 ---
NEUROLOGY CONSULT Date of Admission Date of Admission DATE: 09/27/19 TIME: 14:08 Reason for Consult Reason for Consult: Left foot pain Referring Physician Referring Physician: Dr. Moore Source Source: Chart review, Patient History of Present Illness History of Present Illness The patient is a 38-year-old right-handed female with a long history of chronic pain. 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 Farris for management of chronic pain. Starting about 3 weeks ago she has noticed severe pain, numbness, swelling, coldness, and skin color changes in the left foot. She has been to the emergency room a couple times and was admitted. She went through evaluation for circulatory problems, venous and arterial, with all tests negative. There is no history of stroke, seizure, or head injury. Any movement of the foot makes the pain worse. She has not found any mitigating features except for narcotic analgesics. She has been on gabapentin for several years. She cannot tolerate Lyrica, and she cannot use antidepressants such as Cymbalta because of her history of bipolar disorder. She has had a nerve block in the past which caused markedly increased pain. Past Medical History CENTRAL NERVOUS SYSTEM: Other (chronic pain) Heme/Onc: Cancer (ALL age 5) Psych: Anxiety, Bipolar, Depression Musculoskeletal: low back pain Past Surgical History Past Surgical History: No pertinent history Family History Family History: No pertinent hx Social History Social History , no alcohol, tobacco, street drugs Current Medications Current Medications Current Medications Hydromorphone HCl (Dilaudid) 1 mg 1X ONCE IV Last administered on 09/25/19at 11:35; Start 09/25/19 at 11:00; Stop 09/25/19 at 11:01; Status DC Heparin Sodium (Porcine) (Heparin Sodium) 4,700 unit 1X ONCE IV Last administered on 09/25/19at 12:40; Start 09/25/19 at 12:15; Stop 09/25/19 at 12:25; Status DC Heparin Sodium/ Dextrose 250 ml @ 9.44 mls/hr CONT PRN IV PER PROTOCOL Last administered on 09/26/19at 12:05; Start 09/25/19 at 12:15; Stop 09/26/19 at 13:12; Status DC Heparin Sodium (Porcine) (Heparin Sodium) 1,750 unit PRN Q6HRS PRN IV FOR UFH LEVEL LESS THAN 0.2; Start 09/25/19 at 12:15; Stop 09/26/19 at 13:12; Status DC Heparin Sodium (Porcine) (Heparin Sodium) 900 unit PRN Q6HRS PRN IV FOR UFH LEVEL 0.2 - 0.29 Last administered on 09/26/19at 10:58; Start 09/25/19 at 12:15; Stop 09/26/19 at 13:12; Status DC Hydromorphone HCl (Dilaudid) 1 mg 1X ONCE IV Last administered on 09/25/19at 12:38; Start 09/25/19 at 12:30; Stop 09/25/19 at 12:31; Status DC Iohexol (Omnipaque 350 Mg/ml) 95 ml 1X ONCE IV Last administered on 09/25/19at 13:53; Start 09/25/19 at 14:00; Stop 09/25/19 at 14:01; Status DC Info (CONTRAST GIVEN -- Rx MONITORING) 1 each PRN DAILY PRN MC SEE COMMENTS; Start 09/25/19 at 14:00; Stop 09/27/19 at 13:59; Status DC Hydromorphone HCl (Dilaudid) 1 mg 1X ONCE IV Last administered on 09/25/19at 14:40; Start 09/25/19 at 14:30; Stop 09/25/19 at 14:31; Status DC Hydromorphone HCl (Dilaudid) 8 mg PRN Q4HRS PRN PO SEVERE PAIN Last administered on 09/27/19at 10:59; Start 09/25/19 at 14:45 Acetaminophen (Tylenol) 1,000 mg 1X ONCE PO ; Start 09/25/19 at 14:45; Stop 09/25/19 at 14:46; Status DC Acetaminophen (Tylenol) 650 mg PRN Q6HRS PRN PO MILD - MODERATE PAIN Last administered on 09/27/19at 10:59; Start 09/25/19 at 14:45 Gabapentin (Neurontin) 800 mg TID PO Last administered on 09/27/19at 13:50; Start 09/25/19 at 14:45 Cyclobenzaprine HCl (Flexeril) 10 mg PRN Q6HRS PRN PO MUSCLE SPASMS Last administered on 09/27/19at 06:16; Start 09/25/19 at 14:45 Bupropion HCl (Wellbutrin Sr) 150 mg BID PO Last administered on 09/27/19at 08:38; Start 09/25/19 at 21:00 Docusate Sodium (Colace) 300 mg BID PO Last administered on 09/26/19at 21:51; Start 09/25/19 at 21:00 Non-Formulary Medication (Baclofen ) 1 tab TID PO ; Start 09/25/19 at 21:00; Status UNV Multivitamins (Thera M Plus) 1 tab DAILY PO Last administered on 09/27/19at 08:39; Start 09/26/19 at 09:00 Cyclobenzaprine HCl (Flexeril) 10 mg TID PO Last administered on 09/27/19at 13:50; Start 09/25/19 at 21:00 Nicotine (Nicoderm Cq 21mg) 1 patch DAILY TD ; Start 09/27/19 at 09:00 Heparin Sodium/ Dextrose 250 ml @ 0 mls/hr CONT PRN IV PER PROTOCOL; Start 09/27/19 at 06:45 Heparin Sodium (Porcine) (Heparin Sodium) 1,900 unit PRN Q6HRS PRN IV FOR UFH LEVEL LESS THAN 0.2; Start 09/27/19 at 06:45 Heparin Sodium (Porcine) (Heparin Sodium) 950 unit PRN Q6HRS PRN IV FOR UFH LEVEL 0.2 - 0.29; Start 09/27/19 at 06:45 Info (Anti-Coagulation Monitoring By Pharmacy) 1 each PRN DAILY PRN MC SEE COMMENTS Last administered on 09/27/19at 06:52; Start 09/27/19 at 06:45 Active Scripts Active Reported Colace (Docusate Sodium) 100 Mg Capsule 3 Cap PO BID 30 Days Multi Vitamin Daily (Multivitamin) 1 Each Tablet 1 Tab PO DAILY 30 Days Wellbutrin Sr (Bupropion Hcl) 150 Mg Tablet.er 1 Tab PO BID Baclofen 20 Mg Tablet 1 Tab PO TID Gabapentin 800 Mg Tablet 800 Mg PO TID Dilaudid (Hydromorphone Hcl) 8 Mg Tablet 1 Tab PO TID PRN MDD 3 Tablet(s) 5 Days Allergies Allergies: Coded Allergies: aspirin (Verified Allergy, Intermediate, 09/27/19) ibuprofen (Verified Allergy, Intermediate, 09/27/19) ROS Review of System Negative for fever, chills, weight loss, shortness of breath, chest pain, indigestion, hematochezia, melena, and dysuria. Full 14-point review of systems is negative. Physical Exam Physical Examination General: Well-developed, well-nourished, white female, in no acute distress HEENT: Normocephalic andatraumatic. Tympanic membranes clear.Temporal arteriespulsatile and nontender.Fundoscopic exam unremarkable Neck: Supple without bruit, no meningismus Musculoskeletal: Stability:see neurologic. Gait exam:see neurologic. Tone:see neurologic.Strength:see neurologic. The left leg is cold, mottled, with various color changes and skin atrophy. There is some edema of the left calf. Neurological: Mental Status:intact, orientation, memory, attention span/concentration, language, fund of knowledge normal. Cranial Nerves:Pupils equal and reactive to light, extraocular movements areintact, visual ivdales are full to confrontation. Facial sensation is normal. There is no facial asymmetry. Vestibulo-ocular reflex is intact. Palate elevates and tongue protrudes in midline. All other cranial related problems are negative except as mentioned before.Reflexes:1+ and symmetric with flexor plantar responses. Motor:splints left foot due to pain, does not move it, otherwise 5/5 strength with normal tone and bulk. Coordination:Finger-nose finger and cegq-oo-fqum testing are normal. Rapid alternating movements and fine finger movements are intact. Gait:not tested. Sensory:hyperalgesia, entire left calf Vitals VITALS Vital Signs Date Time Temp Pulse Resp B/P (MAP) Pulse Ox O2 Delivery O2 Flow Rate FiO2 09/27/19 11:00 97.8 78 18 111/61 (78) 100 Room Air 97.8 Labs Labs Laboratory Tests Test 09/25/19 18:40 09/26/19 03:00 09/26/19 08:45 09/27/19 05:21 Heparin Anti-Xa Act, Unfractionated 0.29 IU/mL (0.30-0.70) 0.31 IU/mL (0.30-0.70) 0.25 IU/mL (0.30-0.70) White Blood Count 6.2 x10^3/uL (4.0-11.0) Red Blood Count 3.73 x10^6/uL (3.50-5.40) Hemoglobin 11.5 g/dL (12.0-15.5) Hematocrit 34.2 % (36.0-47.0) Mean Corpuscular Volume 92 fL (79-100) Mean Corpuscular Hemoglobin 31 pg (25-35) Mean Corpuscular Hemoglobin Concent 34 g/dL (31-37) Red Cell Distribution Width 13.3 % (11.5-14.5) Platelet Count 237 x10^3/uL (140-400) Laboratory Tests Test 09/27/19 05:21 White Blood Count 6.2 x10^3/uL (4.0-11.0) Red Blood Count 3.73 x10^6/uL (3.50-5.40) Hemoglobin 11.5 g/dL (12.0-15.5) Hematocrit 34.2 % (36.0-47.0) Mean Corpuscular Volume 92 fL (79-100) Mean Corpuscular Hemoglobin 31 pg (25-35) Mean Corpuscular Hemoglobin Concent 34 g/dL (31-37) Red Cell Distribution Width 13.3 % (11.5-14.5) Platelet Count 237 x10^3/uL (140-400) Assessment/Plan Assessment/Plan Impression: Patient meets all criteria for the diagnosis of complex regional pain syndrome I (CRPS), formerly called reflex sympathetic dystrophy: [facility] CRPS criteria: To make the clinical diagnosis, the following criteria must be met: * Continuing pain, which is disproportionate to any inciting event. * Must report at least one symptom in all four of the following categories: * sensory reports of hyperesthesia and/or allodynia * vasomotor reports of temperature asymmetry and/or skin colour changes and/or skin color asymmetry * sudomotor/edema reports of edema and/or sweating changes and/or sweating asymmetry * motor/trophic reports of decreased range of motion and/or motor dysfunction (weakness, tremor, dystonia) and/or trophic changes (hair, nail, skin). Must display at least one sign at time of evaluation in two or more of the following categories: * sensory evidence of hyperalgesia (to pinprick) and/or allodynia (to light touch and/or temperature sensation and/or deep somatic pressure and/or joint movement) * vasomotor evidence of temperature asymmetry (>?1?C) and/or skin colour changes and/or asymmetry * sudomotor/oedema evidence of edema and/or sweating changes and/or sweati ng asymmetry * motor/trophic evidence of decreased range of motion and/or motor dysfunction (weakness, tremor, dystonia) and/or trophic changes (hair, nail, skin) * There is no other diagnosis that better explains the signs and symptoms. Chronic pain, degenerative disk disease Psychiatric problems including bipolar disorder History of acute lymphocytic leukemia at age 5. Recommendations: MRI of the lumbar spine 3-phase bone scan Plain x-ray of the left foot I told the patient that I doubted that any additional medication trials would help with this condition. She is on a very high-dose of gabapentin, is on na rcotics, and cannot tolerate Lyrica and the usual antidepressants. Therefore, her best bet is to let us rule out any other issues with the above tests, and then she can return to see Dr. Farris for consideration of nerve blocks or even a spinal cord stimulator. We could consult Dr. Redmond here, but I don't think he can add anything as an inpatient anyway and she is already established care with Dr. Farris. Okay to discharge after tests are done, I suspect the bone scan will be done until tomorrow, though. I fully discussed my plan and diagnosis with the patient and answered her questions. Thank you for letting me help with the patient's care. MARILY BUENO MD Sep 27, 2019 14:25
[2019-09-27 15:00] VITALS: BP 130/59
--- NOTE | 2019-09-27 15:08 | RAD ---
Three-view study left foot Clinical indications: Left foot pain. Heel and ball of foot tenderness. FINDINGS: No acute fracture or dislocation or lytic process is seen. No periosteal reaction is evident. Tiny plantar spur of the calcaneus is seen. Small posterior spur of the calcaneus is seen at the attachment of Achilles tendon. No significant arthritic change is seen. IMPRESSION: No acute osseous abnormality. Tiny plantar spur of the calcaneus. Electronically signed by: Vinnie Love MD (09/27/2019 3:05 PM) [facility]
--- NOTE | 2019-09-27 16:00 | RAD ---
MRI Lumbar Spine without contrast History: Severe left leg pain, back pain, degenerative disc disease Technique: Multiplanar, multi sequential noncontrast MR imaging was performed of the lumbar spine. Comparison: None Findings: There is some motion degradation. Lumbar vertebral body stature is overall maintained. AP alignment is within normal limits. Conus terminates at L1. There is moderate to severe degenerative disc disease at L5-S1, mild disc desiccation L4-5. There are annular tears posteriorly at L4-5 and anteriorly L5-S1. There is nonspecific edema of the posterior subcutaneous fat of the lower back. L1-L2: This level was not included on axial images. Focus of marrow signal change of the left posterior L2 vertebral body is most likely a hemangioma, slightly hyperintense on all sequences. Spinal canal and neural foramina are adequate. L2-L3: Spinal canal and neural foramina are adequate. L3-L4: There is mild buckling of the ligamentum flavum. Neural foramina and spinal canal are adequate. L4-L5: There is disc osteophyte complex and superimposed protrusion about 3 mm AP. There is mild buckling of the ligamentum flavum. There is [id number] narrowing of the far lateral recesses bilaterally with degree of contact of the descending L5 nerve roots bilaterally. Neural foramina are not significantly narrowed. L5-S1: There is disc osteophyte complex, superimposed broad protrusion more eccentric to the left lateral recess about 4 to 5 mm AP, indentation upon the ventral thecal sac greatest centrally and in the left lateral recess. There is [id number] left lateral recess stenosis with contact and mild posterior displacement of the descending left S1 nerve root, very mild right lateral recess stenosis and minimal narrowing of the central canal. There is minimal narrowing of the left neural foramen, right neural foramen adequate. Impression: 1. There is [id number] narrowing of the far lateral recesses bilaterally at L4-5 with contact of the descending L5 nerve roots bilaterally. There is also [id number] left lateral recess stenosis at L5-S1 with contact of the descending left S1 nerve root by protrusion. 2. There is moderate to severe degenerative disc disease at L5-S1. Electronically signed by: Fabrizio Yost MD (09/27/2019 3:57 PM) [id number]
[2019-09-27 19:00] VITALS: BP 101/61
[2019-09-27 23:03] VITALS: BP 112/67
[2019-09-28] MEDS: HYDROmorphone 4 MG TABLET PO PRN ×3 (02:59→11:33)
[2019-09-28 03:00] VITALS: BP 102/59
[2019-09-28 07:00] VITALS: BP 104/59
[2019-09-28] MEDS: DOCUSATE SODIUM 100 MG CAPSULE. PO SCH (09:00)
[2019-09-28] MEDS: NICOTINE 21MG PATCH. TD SCH (09:00)
[2019-09-28] MEDS: buPROPion SR 150 MG TABLET.SA PO SCH (09:17)
[2019-09-28] MEDS: MULTIVITAMIN with MINERAL TABLET. PO SCH (09:17)
[2019-09-28] MEDS: CYCLOBENZAPRINE 10 MG TABLET. PO SCH (09:17)
--- NOTE | 2019-09-28 09:34 | PDOC ---
PROGRESS NOTES Assessment Problems Medical Problems: (1) Peroneal artery occlusion, right Status: Acute (2) Right leg pain Status: Acute Patient meets all criteria for the diagnosis of complex regional pain syndrome I (CRPS), formerly called reflex sympathetic dystrophy: [facility] criteria: To make the clinical diagnosis, the following criteria must be met: * Continuing pain, which is disproportionate to any inciting event. * Must report at least one symptom in all four of the following categories: * sensory reports of hyperesthesia and/or allodynia * vasomotor reports of temperature asymmetry and/or skin colour changes and /or skin color asymmetry * sudomotor/edema reports of edema and/or sweating changes and/or sweating asymmetry * motor/trophic reports of decreased range of motion and/or motor dysfunction (weakness, tremor, dystonia) and/or trophic changes (hair, nail, skin). Must display at least one sign at time of evaluation in two or more of the following categories: * sensory evidence of hyperalgesia (to pinprick) and/or allodynia (to light touch and/or temperature sensation and/or deep somatic pressure and/or j oint movement) * vasomotor evidence of temperature asymmetry (>?1?C) and/or skin colour changes and/or asymmetry * sudomotor/oedema evidence of edema and/or sweating changes and/or sweating asymmetry * motor/trophic evidence of decreased range of motion and/or motor dysfunction (weakness, tremor, dystonia) and/or trophic changes (hair, nail, skin) * There is no other diagnosis that better explains the signs and symptoms. Chronic pain, degenerative disk disease. MRI shows lwwo-zw-wfmvhzpf narrowing of the far lateral recesses bilaterally at L4-5 with contact of the descending L5 nerve roots, wvvr-od-[id number] left lateral recess stenosis at L5-S1 with contact of the descending left S1 nerve root by protrusion, moderate to severe degenerative disc disease at L5-S1. Tiny plantar spur of the left calcaneus, not clinically significant Psychiatric problems including bipolar disorder History of acute lymphocytic leukemia at age 5. Plan I filled out her FMLA papers Await 3-phase bone scan I have nothing to offer medically for this condition. She needs to return to Dr. Farris for consideration of nerve blocks or even a spinal cord stimulator. She can get another opinion as outpatient from Dr. Jd Redmond if she wants Okay to discharge today I fully discussed my plan and diagnosis with the patient and answered her questions. Subjective Severe pain in the foot still. She has a supply of Dilaudid at home Objective Vital Signs Date Time Temp Pulse Resp B/P (MAP) Pulse Ox O2 Delivery O2 Flow Rate FiO2 09/28/19 07:00 97.6 102 12 104/59 (74) 96 Room Air 97.6 Intake and Output 09/28/19 07:00 Intake Total 1750 ml Output Total 4001 ml Balance -2251 ml Intake Oral 1750 ml Output Urine Total 4000 ml Stool Total 1 ml PHYSICAL EXAM Alert. Oriented to time, place and person. PERRL. EOMI. CN: no focal findings. Muscle tone: normal. Muscle strength: splints left foot due to pain, does not move it, otherwise 5/5 DTR: 1+ Plantar reflex: flexor Gait: not examined in bed. Sensory exam: hyperalgesia, entire left calf No cerebellar signs elicited. The left leg is cold, mottled, with various color changes and skin atrophy. There is some edema of the left calf. Review of Relevant I have reviewed the following items jag (where applicable) has been applied. Labs Laboratory Tests Test 09/27/19 05:21 White Blood Count 6.2 x10^3/uL (4.0-11.0) Red Blood Count 3.73 x10^6/uL (3.50-5.40) Hemoglobin 11.5 g/dL (12.0-15.5) Hematocrit 34.2 % (36.0-47.0) Mean Corpuscular Volume 92 fL (79-100) Mean Corpuscular Hemoglobin 31 pg (25-35) Mean Corpuscular Hemoglobin Concent 34 g/dL (31-37) Red Cell Distribution Width 13.3 % (11.5-14.5) Platelet Count 237 x10^3/uL (140-400) Medications Current Medications Hydromorphone HCl (Dilaudid) 1 mg 1X ONCE IV Last administered on 09/25/19at 11:35; Start 09/25/19 at 11:00; Stop 09/25/19 at 11:01; Status DC Heparin Sodium (Porcine) (Heparin Sodium) 4,700 unit 1X ONCE IV Last administered on 09/25/19at 12:40; Start 09/25/19 at 12:15; Stop 09/25/19 at 12:25; Status DC Heparin Sodium/ Dextrose 250 ml @ 9.44 mls/hr CONT PRN IV PER PROTOCOL Last administered on 09/26/19at 12:05; Start 09/25/19 at 12:15; Stop 09/26/19 at 13:12; Status DC Heparin Sodium (Porcine) (Heparin Sodium) 1,750 unit PRN Q6HRS PRN IV FOR UFH LEVEL LESS THAN 0.2; Start 09/25/19 at 12:15; Stop 09/26/19 at 13:12; Status DC Heparin Sodium (Porcine) (Heparin Sodium) 900 unit PRN Q6HRS PRN IV FOR UFH LEVEL 0.2 - 0.29 Last administered on 09/26/19at 10:58; Start 09/25/19 at 12:15; Stop 09/26/19 at 13:12; Status DC Hydromorphone HCl (Dilaudid) 1 mg 1X ONCE IV Last administered on 09/25/19at 12:38; Start 09/25/19 at 12:30; Stop 09/25/19 at 12:31; Status DC Iohexol (Omnipaque 350 Mg/ml) 95 ml 1X ONCE IV Last administered on 09/25/19at 13:53; Start 09/25/19 at 14:00; Stop 09/25/19 at 14:01; Status DC Info (CONTRAST GIVEN -- Rx MONITORING) 1 each PRN DAILY PRN MC SEE COMMENTS; Start 09/25/19 at 14:00; Stop 09/27/19 at 13:59; Status DC Hydromorphone HCl (Dilaudid) 1 mg 1X ONCE IV Last administered on 09/25/19at 14:40; Start 09/25/19 at 14:30; Stop 09/25/19 at 14:31; Status DC Hydromorphone HCl (Dilaudid) 8 mg PRN Q4HRS PRN PO SEVERE PAIN Last ad ministered on 09/28/19at 07:38; Start 09/25/19 at 14:45 Acetaminophen (Tylenol) 1,000 mg 1X ONCE PO ; Start 09/25/19 at 14:45; Stop 09/25/19 at 14:46; Status DC Acetaminophen (Tylenol) 650 mg PRN Q6HRS PRN PO MILD - MODERATE PAIN Last administered on 09/27/19at 10:59; Start 09/25/19 at 14:45 Gabapentin (Neurontin) 800 mg TID PO Last administered on 09/27/19at 21:30; Start 09/25/19 at 14:45 Cyclobenzaprine HCl (Flexeril) 10 mg PRN Q6HRS PRN PO MUSCLE SPASMS Last administered on 09/27/19 06:16; Start 09/25/19 at 14:45 Bupropion HCl (Wellbutrin Sr) 150 mg BID PO Last administered on 09/28/19at 09:17; Start 09/25/19 at 21:00 Docusate Sodium (Colace) 300 mg BID PO Last administered on 09/26/19at 21:51; Start 09/25/19 at 21:00 Non-Formulary Medication (Baclofen ) 1 tab TID PO ; Start 09/25/19 at 21:00; Status UNV Multivitamins (Thera M Plus) 1 tab DAILY PO Last administered on 09/28/19at 09:17; Start 09/26/19 at 09:00 Cyclobenzaprine HCl (Flexeril) 10 mg TID PO Last administered on 09/28/19 09:17; Start 09/25/19 at 21:00 Nicotine (Nicoderm Cq 21mg) 1 patch DAILY TD ; Start 09/27/19 at 09:00 Heparin Sodium/ Dextrose 250 ml @ 0 mls/hr CONT PRN IV PER PROTOCOL; Start 09/27/19 at 06:45 Heparin Sodium (Porcine) (Heparin Sodium) 1,900 unit PRN Q6HRS PRN IV FOR UFH LEVEL LESS THAN 0.2; Start 09/27/19 at 06:45 Heparin Sodium (Porcine) (Heparin Sodium) 950 unit PRN Q6HRS PRN IV FOR UFH LEVEL 0.2 - 0.29; Start 09/27/19 at 06:45 Info (Anti-Coagulation Monitoring By Pharmacy) 1 each PRN DAILY PRN MC SEE COMMENTS Last administered on 09/27/19at 06:52; Start 09/27/19 at 06:45 Active Scripts Active Reported Colace (Docusate Sodium) 100 Mg Capsule 3 Cap PO BID 30 Days Multi Vitamin Daily (Multivitamin) 1 Each Tablet 1 Tab PO DAILY 30 Days Wellbutrin Sr (Bupropion Hcl) 150 Mg Tablet.er 1 Tab PO BID Baclofen 20 Mg Tablet 1 Tab PO TID Gabapentin 800 Mg Tablet 800 Mg PO TID Dilaudid (Hydromorphone Hcl) 8 Mg Tablet 1 Tab PO TID PRN MDD 3 Tablet(s) 5 Days Vitals/I & O Vital Sign - Last 24 Hours 09/27/19 09/27/19 09/27/19 09/27/19 11:00 15:00 19:00 20:00 Temp 97.8 98.1 97.8 97.8 98.1 97.8 Pulse 78 80 67 Resp 18 18 9 B/P (MAP) 111/61 (78) 130/59 (82) 101/61 (74) Pulse Ox 100 97 97 O2 Delivery Room Air Room Air Room Air Room Air 09/27/19 09/28/19 09/28/19 23:03 03:00 07:00 Temp 97.9 97.9 97.6 97.9 97.9 97.6 Pulse 80 74 102 Resp 16 12 12 B/P (MAP) 112/67 (82) 102/59 (73) 104/59 (74) Pulse Ox 99 93 96 O2 Delivery Room Air Room Air Room Air Intake and Output 09/27/19 09/27/19 09/28/19 15:00 23:00 07:00 Intake Total 400 ml 800 ml 550 ml Output Total 1000 ml 2600 ml 401 ml Balance -600 ml -1800 ml 149 ml Images Three-view study left foot Clinical indications: Left foot pain. Heel and ball of foot tenderness. FINDINGS: No acute fracture or dislocation or lytic process is seen. No periosteal reaction is evident. Tiny plantar spur of the calcaneus is seen. Small posterior spur of the calcaneus is seen at the attachment of Achilles tendon. No significant arthritic change is seen. IMPRESSION: No acute osseous abnormality. Tiny plantar spur of the calcaneus. MRI Lumbar Spine without contrast History: Severe left leg pain, back pain, degenerative disc disease Technique: Multiplanar, multi sequential noncontrast MR imaging was performed of the lumbar spine. Comparison: None Findings: There is some motion degradation. Lumbar vertebral body stature is overall maintained. AP alignment is within normal limits. Conus terminates at L1. There is moderate to severe degenerative disc disease at L5-S1, mild disc desiccation L4-5. There are annular tears posteriorly at L4-5 and anteriorly L5-S1. There is nonspecific edema of the posterior subcutaneous fat of the lower back. L1-L2: This level was not included on axial images. Focus of marrow signal change of the left posterior L2 vertebral body is most likely a hemangioma, slightly hyperintense on all sequences. Spinal canal and neural foramina are adequate. L2-L3: Spinal canal and neural foramina are adequate. L3-L4: There is mild buckling of the ligamentum flavum. Neural foramina and spinal canal are adequate. L4-L5: There is disc osteophyte complex and superimposed protrusion about 3 mm AP. There is mild buckling of the ligamentum flavum. There is qpav-kj-epsxwakr narrowing of the far lateral recesses bilaterally with degree of contact of the descending L5 nerve roots bilaterally. Neural foramina are not significantly narrowed. L5-S1: There is disc osteophyte complex, superimposed broad protrusion more eccentric to the left lateral recess about 4 to 5 mm AP, indentation upon the ventral thecal sac greatest centrally and in the left lateral recess. There is zzxl-dy-wzhwxbod left lateral recess stenosis with contact and mild posterior displacement of the descending left S1 nerve root, very mild right lateral recess stenosis and minimal narrowing of the central canal. There is minimal narrowing of the left neural foramen, right neural foramen adequate. Impression: 1. There is ujhy-fc-qitmxacp narrowing of the far lateral recesses bilaterally at L4-5 with contact of the descending L5 nerve roots bilaterally. There is also vwcr-pu-tzpzrjio left lateral recess stenosis at L5-S1 with contact of the descending left S1 nerve root by protrusion. 2. There is moderate to severe degenerative disc disease at L5-S1. MARILY BUENO MD Sep 28, 2019 09:33
[2019-09-28 11:00] VITALS: BP 109/64
[2019-09-28] MEDS: GABAPENTIN 400 MG CAPSULE. PO SCH (11:33)
--- NOTE | 2019-09-28 11:41 | PDOC ---
[facility] PROGRESS NOTE Chief Complaint Chief Complaint Acute left lower leg pain Narcotic dependence and chronic pain disorder History of Present Illness History of Present Illness Pt seen and examined. Chart reviewed and care discussed with nursing staff. Pt continues to have pain in her foot w/ numbness. The pain is under better control today. 09/28/2019 pt examined and seen chart reviewed pt pain is more under control today discussed findings of MRI with pt pt still continues to have significant pain, but it is now more under control discussed med list with pt discussed potential of seeing a pain management doctor post d/c discussed pt care with family members present Vitals/I&O Vitals/I&O: Vital Signs Date Time Temp Pulse Resp B/P (MAP) Pulse Ox O2 Delivery O2 Flow Rate FiO2 09/28/19 08:00 Room Air 09/28/19 07:00 97.6 102 12 104/59 (74) 96 97.6 I & O 09/27/19 09/27/19 09/28/19 15:00 23:00 07:00 Intake Total 400 ml 800 ml 550 ml Output Total 1000 ml 2600 ml 401 ml Balance -600 ml -1800 ml 149 ml Physical Exam General: Alert, Cooperative, moderate distress, severe distress Heart: Regular rate Abdomen: Normal bowel sounds, Soft Extremities: No cyanosis, No edema, Normal pulses, Other (was cold left lower leg, then warmed later and was hyperemic ) Skin: No breakdown Review of Systems Review of Systems: GI: pt denies NV, abdominal pain, changes in stool Neuro: pt denies GUSMAN, change in vision, numbness Assessment and Plan Assessmemt and Plan 09/28/2019 pt examined and seen chart reviewed pt pain is more under control today discussed findings of MRI with pt pt still continues to have significant pain, but it is now more under control discussed med list with pt discussed potential of seeing a pain management doctor post d/c discussed pt care with family members present Plan d/c pending pt disposition this afternoon continue home meds can follow up with neurologist regarding RSD. follow up with pain management doctor and PCP pt/ot Comment Review of Relevant I have reviewed the following items jag (where applicable) has been applied. VALENTINO GALINDO III DO Sep 28, 2019 11:41
--- NOTE | 2019-09-28 11:52 | RAD ---
Three-phase bone scan. INDICATION: Severe left heel pain after initial left foot numbness. History of leukemia at 5 years old. Complex regional pain syndrome. COMPARISON: Left foot x-ray series of September 27, 2019 and lower arterial ultrasound of 09/27/2019. TECHNIQUE: Following IV administration of 25.5 mCi of technetium labeled MDP radiopharmaceutical, blood flow, blood pool and delayed static images of the bilateral feet was performed. FINDINGS: Asymmetric global decrease in blood flow to the left foot is demonstrated with decreased blood pooling and delayed uptake in the osseous structures. In the right foot, activity at Bryant's hump, in the mid foot, and in the tibiotalar joint are compatible with mild degenerative changes. No such activity is evident in the left foot. The lateral left foot does show mild linear uptake near the plantar fascial attachment on the calcaneus. IMPRESSION: There is evidence of relative hypoperfusion, oligemia, and decrease in radiopharmaceutical uptake on delayed imaging in the left foot. This probably reflects altered weightbearing in the normal right foot. In addition, linear uptake in the region of the left foot planter fascia is noted. This could represent plantar fasciitis in the appropriate clinical context. Consider MRI if further evaluation if clinically warranted Electronically signed by: Oral Nicole MD (09/28/2019 11:49 AM) [id number]
--- NOTE | 2019-09-28 13:10 | NUR ---
Discharge Note: ALFRED LINDSEY HAWKINS Discharge instructions and discharge home medications reviewed with Patient and a copy given. All questions have been answered and understanding verbalized. Patient instructed to follow up with pain management doctor and foot doctor. Discontinued lines and drains: Peripheral IV intact. Patient discharged to Home or Self Care with Self via Wheelchair
== END 2019-09-28 13:10 | disposition home or self-care (01) | DRG 74 ==
LOC: ER 10:18 → ED HOLD 12:08 → 2 NORTH 16:36
PROVIDERS: ADMIT Internal Medicine; ATTEND Internal Medicine
DX: G90.522 Complex regional pain syndrome I of left lower limb (principal); F11.20 Opioid dependence, uncomplicated; I70.202 Unspecified atherosclerosis of native arteries of extremities, left leg; M54.30 Sciatica, unspecified side; G62.9 Polyneuropathy, unspecified; G83.9 Paralytic syndrome, unspecified; F31.9 Bipolar disorder, unspecified; F41.9 Anxiety disorder, unspecified; M48.07 Spinal stenosis, lumbosacral region; M51.37 Other intervertebral disc degeneration, lumbosacral region; F17.210 Nicotine dependence, cigarettes, uncomplicated; M51.9 Unspecified thoracic, thoracolumbar and lumbosacral intervertebral disc disorder; Z88.6 Allergy status to analgesic agent; Z82.3 Family history of stroke; Z90.49 Acquired absence of other specified parts of digestive tract; Z85.6 Personal history of leukemia; Z98.84 Bariatric surgery status
CPT/HCPCS: 36415; 72148; 73630; 75635; 78315; 80053; 81025; 85025; 85027; 85520; 85610; 85730; 93923; 93926; 93971; 96374; 96375; 96376; 99285; A9503; J1170; J1644; Q9967; G0378

== ENCOUNTER → 2020-04-17 | Outpatient (CLI) | payer OTHER ==
[~2020-04-17] MED LIST: BACL20TA PO; BUPR150T8 PO; DOCU-109 PO; GABA800T5 PO; HYDR8TAB29 PO; IOHEXOL 180 MG/ML 10 ML VIAL. ONE; MELO15TA23 PO; MULT-245 PO; OXYC20TA PO; methylPREDNISolone ACETATE 40 MG/ML VIAL. ONE; methylPREDNISolone ACETATE 80 MG/ML VIAL. ONE
--- NOTE | 2020-04-17 14:49 | PDOC2 ---
INITIAL PAIN CONSULT DATE OF SERVICE: DOS: DATE: 04/17/20 TIME: 14:40 CHIEF COMPLAINT: Chief Complaint: Low back and bilateral lower extremity pain HISTORY OF PRESENT ILLNESS: 39-year-old female presents with history of pain low back bilateral lower extremities for about 15 years overall. Patient ports she had multiple spinal taps when she was younger where she had acute lymphocytic leukemia and chemotherapy and has had some back pain since that time about 15 years ago patient reports pain is getting worse now over the past year or 2 she has been on chronic opioid therapy for multiple years now taking oxycodone. Patient reports the pain is in the low back bilateral lower extremities slightly worse on the right than the left into the posterior gluteus posterior thigh posterior calf anterior thigh anteromedial thigh medial lower leg anterior lower leg into the foot on the anterior and the lower aspect of the right foot and the left side is in the posterior gluteus lateral thigh anterior thigh in the posterior thigh and calf as well. Patient ports increase in spasms pain loses balance because of these sensations worse with sitting for too long greater than 30 to 40 minutes with walking standing changing positions. Patient reports his pain is described as constant sharp stabbing throbbing shooting radiating the lower extremities with some numbness and tingling the legs changes during the day worse with activity standing walking better with sitting or laying down but wakes her from sleep at least twice a night patient ports pain is burning and cramping in the low back as well as an aching sensation patient reports does affect her bowel bladder control but no loss of continence with some increased frequency patient reports it does affect her ability to walk she is not using any assistive devices currently. Patient has had previous trigger point injections physical therapy and chiropractic treatment is doing exercise currently all these of been mildly helpful she did have epidural injections in 2015 which were not helpful as well. She has tried Dilaudid, methadone, Nucynta, hydrocodone, Opana, fentanyl patches. Patient rates her disability rating 0-10 10 being the worst is a 6 with family home was possibilities 9 with recreation social activity 5 with occupational activity 9 with sexual behavior 8 with self-care and 7 with life support activities. Patient did have a lumbar MRI scan showing mild to moderate narrowing the far lateral recesses bilaterally at L4-5 with contact with descending L5 nerve roots bilaterally also mild to moderate left lateral recess stenosis at L5-S1 with contact of the descending left S1 nerve root by protrusion. Moderate to severe degenerative disc disease at L5-S1 PAST MEDICAL HISTORY: PMH: Chemotherapy, radiation, acute lymphocytic leukemia, arthritis, shingles, depression, blood clots PREVIOUS SURGERIES: Past Surgical Hx: Gastric bypass 2007, cholecystectomy 2004, left adrenal mass excision at age 12 CURRENT MEDICATIONS: Current Meds: Active Scripts Medications Dose Route/Sig Max Daily Dose Days Date Category Meloxicam 15 Mg Tablet 1 Tab PO DAILY 30 04/17/20 Reported Oxycodone Hcl 20 Mg Tablet 15 Mg PO QID PRN 04/17/20 Reported Colace (Docusate Sodium) 100 Mg Capsule 3 Cap PO BID 30 09/25/19 Reported Multi Vitamin Daily (Multivitamin) 1 Each Tablet 1 Tab PO DAILY 30 09/25/19 Reported Gabapentin 800 Mg Tablet 800 Mg PO QID 09/25/19 Reported ALLERGIES; Allergies: Coded Allergies: aspirin (Verified Allergy, Intermediate, 09/27/19) ibuprofen (Verified Allergy, Intermediate, 09/27/19) latex (Verified Allergy, Intermediate, hives, 04/17/20) FAMILY HISTORY: Family Hx: Hypercholesterolemia, heart problems, hypertension, lupus, cancers SOCIAL HISTORY: Social Hx: Patient does not drink alcohol smokes cigarettes about less than 1 pack a day for the past 25 years does not use any illegal illicit or recreational drug is has 2 children living at [place] [employer] [place]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 PHYSICAL EXAM: VS: Blood pressure is 140/70 pulse 70 respirations 20 temperature 98.4 F height is 5 feet 6 inches weight is 145 pounds PE: PHYSICAL EXAMINATION: GENERAL: The patient is awake, alert, oriented, appropriate, very pleasant demeanor HEENT: Shows normocephalic, atraumatic. Extraocular movements are intact and symmetrical. Oral cavity: Mucous membranes moist and pink. Dentition is intact. NECK: Shows anterior throat supple without palpable lymphadenopathy noted. Swallow reflex symmetrical. CHEST: Shows normal on inspection. Breath sounds are clear bilaterally, no rales rhonchi or wheezes auscultated. HEART: Shows S1, S2 clear. No murmurs auscultated. ABDOMEN: Soft, nontender, nondistended. No palpable organomegaly is noted. No rebound or guarding demonstrated. BACK: Shows spine grossly in the midline. Normal-appearing cervical lordotic curvature. There is slightly increased thoracic kyphosis, some minor flattening of the lumbar lordotic curvature. Lumbar paraspinous muscles show symmetrical on inspection, on palpation shows some moderate tenderness diffusely throughout the upper, middle and lower distribution of the paraspinous muscles bilaterally and also into the lower thoracic paraspinous musculature, firm and tender, but without specific trigger points, without radiation of pain. The patient has good rotational motion of the lumbar spine, both laterally as well as extension and flexion without significant difficulty. No tenderness over the spinous p rocesses, but mild to moderate tenderness over the sacroiliac regions, bilaterally. EXTREMITIES: Lower extremities show deep tendon reflexes 2+ in the patellar and tendo calcaneus tendons. Motor exam is 4 on a scale of 5 with right dorsiflexion, extension, quadriceps and hamstring flexion and 5/5 on the left. Peripheral pulses are 1+ posterior tibial. No peripheral edema is noted bilaterally. Lower extremities are warm and dry to touch, equal in color and appearance. Straight leg raise noted to be positive on the right about 40 degrees, left side is negative. Gaenslen's and Joseph's maneuvers are negative as well. The patient is able to stand, stand her toes but has some resting tremor in the hips and lower extremities with standing and walking and even at rest to some extent. This resolves with strength examination of the lower extremities and resistance bilaterally. patient is walking with a slight shuffling gait does not appear to favor the right or left lower extremity significantly not use any assistive devices to ambulate. SKIN: Shows warm and dry, good turgor. No edema. No sores, rashes or bruising throughout. IMPRESSION: Impression: 39-year-old female with long history of low back bilateral lower extremity pain and radicular fashion worse on the right than the left MRI scan lumbar spine as noted History of acute lymphocytic leukemia History of chemotherapy History of arthritis Plan: Options were discussed with the patient including physical therapies medication management interventional techniques and he like to pursue interventional techniques we discussed a lumbar epidural steroid duration using description as well as anatomical models to describe the procedure. Risks were discussed including but not limited to: Bleeding, infection, possibility of epidural hematoma and subsequent neurological compromise, dural puncture, headaches, spinal cord and/or nerve damage, side effects of steroid medication, and poor results regarding pain control. Patient understands wished to proceed. Patient return to clinic in proxy 2 weeks for follow-up was counseled as to return appointment activity level and side effects to be aware of. Procedure is lumbar epidural steroid injection under local anesthetic using sterile prep and drape at the L5-S1 level using C-arm fluoroscopic guidance in both AP and lateral views medications injected is 120 mg Depo-Medrol + 10 mL preservative-free normal saline and 2 mL contrast- condition at discharge is stable patient tolerated procedure well had no complications. JOSÉ MANUEL GAYTAN MD Apr 17, 2020 14:49
== END | disposition home or self-care (01) ==
LOC: PNCL 13:10
PROVIDERS: ATTEND Anesthesiology
DX: M54.5 Low back pain (principal); M48.061 Spinal stenosis, lumbar region without neurogenic claudication; M51.37 Other intervertebral disc degeneration, lumbosacral region; M79.662 Pain in left lower leg; M79.661 Pain in right lower leg; F32.9 Major depressive disorder, single episode, unspecified; M19.90 Unspecified osteoarthritis, unspecified site; F17.210 Nicotine dependence, cigarettes, uncomplicated; Z92.21 Personal history of antineoplastic chemotherapy; Z88.8 Allergy status to other drugs, medicaments and biological substances; Z79.899 Other long term (current) drug therapy; Z98.890 Other specified postprocedural states
CPT/HCPCS: 62323; J1030; J1040; Q9965

== ENCOUNTER → 2020-05-01 | Outpatient (CLI) | payer OTHER ==
[~2020-05-01] MED LIST changes: +MORP30TA PO
--- NOTE | 2020-05-01 11:04 | PDOC ---
Progress Note - Pain Clinic Date of Service: DOS: DATE: 05/01/20 TIME: 11:01 Diagnosis: Dx: Lumbar radiculopathy with lumbar degenerative disc disease and lumbar spinal stenosis History or Present Illness: HPI: 39-year-old female returns follow-up status post lumbar epidural steroid injection x1. Patient reports about 30% improvement overall still pain low back and right lower extremity posterior gluteus posterior thigh posterior calf but better than it was the leg is not radiating as much into the lower leg but mostly in the upper leg. Patient reports pain is an 8 on scale 10 is worse over the past week 5 on average 3 its least is a 5 today describes as aching and sharp tight shooting tingling cramping burning stabbing radiating at times coming constant with walking standing changing positions or sitting for prolonged periods but right leg feels that it is stronger than it was previously spent walking greater distances doing work activities greater ease and comfort doing household activities greater ease as well. Patient ports he is sleeping better at night as well. Patient reports no new motor or sensory deficits no bowel or bladder incontinence or other complaints. Physical Exam: VS: Blood pressure is 134/80 pulse 83 respiration 16 temperature 98.3 F weight is 145 pounds PE: PHYSICAL EXAMINATION: GENERAL: The patient is awake, alert, oriented, appropriate, very pleasant demeanor HEENT: Shows normocephalic, atraumatic. Extraocular movements are intact and symmetrical. Oral cavity: Mucous membranes moist and pink. Dentition is intact. NECK: Shows anterior throat supple without palpable lymphadenopathy noted. Swallow reflex symmetrical. CHEST: Shows normal on inspection. Breath sounds are clear bilaterally. HEART: Shows S1, S2 clear. No murmurs auscultated. ABDOMEN: Soft, nontender, nondistended. No palpable organomegaly is noted. No rebound or guarding demonstrated. BACK: Shows spine grossly in the midline. Normal-appearing cervical lordotic curvature. There is slightly increased thoracic kyphosis, some minor flattening of the lumbar lordotic curvature. Lumbar paraspinous muscles show symmetrical on inspection, on palpation shows some moderate tenderness diffusely throughout the upper, middle and lower distribution of the paraspinous muscles bilaterally without specific trigger points, without radiation of pain. The patient has goo d rotational motion of the lumbar spine, both laterally as well as extension and flexion without significant difficulty. No tenderness over the spinous processes, sacrum or sacroiliac regions. EXTREMITIES: Lower extremities show deep tendon reflexes 2+ in the patellar and tendo calcaneus tendons. Motor exam is 4 on a scale of 5 with right dorsiflexion, extension, quadriceps and hamstring flexion and 5/5 on the left. Peripheral pulses are 1+ posterior tibial. No peripheral edema is noted bilaterally. Lower extremities are warm and dry to touch, equal in color and appearance. SKIN: Shows warm and dry, good turgor. No edema. No sores, rashes or bruising throughout. Procedure: Procedure: Options were discussed with the patient. Patient will chart reviews her current medication regimen updated current review of systems updated today as well we will proceed with a second in the series lumbar epidural straight injection today with fluoroscopic guidance. Risks were discussed including but not limited to: Bleeding, infection, possibility of epidural hematoma and subsequent neurological compromise, dural puncture, headaches, spinal cord and/or nerve damage, side effects of steroid medication, and poor results regarding pain con trol. Patient understands wished to proceed. Patient return to the clinic in proxy 2 weeks for follow-up was counseled as return appointment active level and side effects to be aware. Medication Injected: Med Injected: Procedure is lumbar epidural steroid injection under local anesthetic using sterile prep and drape at the L5-S1 level using C-arm fluoroscopic guidance in both AP and lateral views medications injected is 120 mg Depo-Medrol + 10 mL preservative-free normal saline and 2 mL contrast- condition at discharge is stable patient tolerated procedure well had no complications. Condition at Discharge: Condition at Discharge: Condition at discharge is stable patient tolerated procedure well had no complications. JOSÉ MANUEL GAYTAN MD May 01, 2020 11:04
== END | disposition home or self-care (01) ==
LOC: PNCL 10:08
PROVIDERS: ATTEND Anesthesiology
DX: M51.16 Intervertebral disc disorders with radiculopathy, lumbar region (principal); M48.061 Spinal stenosis, lumbar region without neurogenic claudication; F32.9 Major depressive disorder, single episode, unspecified; Z88.8 Allergy status to other drugs, medicaments and biological substances; Z79.899 Other long term (current) drug therapy; Z87.891 Personal history of nicotine dependence
CPT/HCPCS: 62323; J1030; J1040; Q9965

== ENCOUNTER → 2021-03-24 | Outpatient (CLI) | payer OTHER ==
--- NOTE | 2021-03-24 14:51 | PDOC ---
Progress Note - Pain Clinic Date of Service: DOS: DATE: 03/24/21 TIME: 14:48 Diagnosis: Dx: Lumbar radiculopathy with lumbar degenerative disease and lumbar spinal stenosis History or Present Illness: HPI: 40-year-old female returns status post lumbar epidural steroid injection x1 May 01, 2020. Patient reports did very well 85% improvement for almost a year pain returning now in the low back and right lower extremity mainly in the posterior gluteus posterior thigh posterior calf lateral thigh and anterior calf to some extent patient reports is across the low back into the right lower extremity rated as a 9 on scale 10 it is worse over the past week 6 on average 4 to sleep and is a 5 today patient was aching sharp pain shooting tingling burning in the leg cramping in the back stabbing in the leg radiating the lower extremity constant and severe with walking standing better with sitting or layi ng down patient reports initially she was doing much better with distance walking doing household activities work activities greater ease and comfort travel with greater ease decreasing oral analgesics as well patient reports the pain is returning however and is much more noticeable with walking and standing better with sitting for prolonged periods better with laying down but occa sionally wakes her from sleep not every night. Patient reports no new motor or sensory deficits no bowel or bladder incontinence. Physical Exam: VS: Blood pressure is 156/58 pulse 67 respirations 18 temperature is 98.2 F height is 5 feet 6 inches weight is 133 pounds PE: PHYSICAL EXAMINATION: GENERAL: The patient is awake, alert, oriented, appropriate, very pleasant in demeanor. HEENT: Shows normocephalic, atraumatic. Extraocular movements are intact and symmetrical. Oral cavity: Mucous membranes moist and pink. Dentition is intact. NECK: Shows anterior throat supple without palpable lymphadenopathy noted. Swallow reflex symmetrical. CHEST: Shows normal on inspection. Breath sounds are clear bilaterally, distant but no rales or rhonchi. HEART: Shows S1, S2 clear. No murmurs auscultated. ABDOMEN: Soft, nontender, nondistended. No palpable organomegaly is noted. BACK: Shows spine grossly in the midline. Normal-appearing cervical lordotic curvature. There is slightly increased thoracic kyphosis, some minor flattening of the lumbar lordotic curvature. Lumbar paraspinous muscles show symmetrical on inspection, on palpation shows some moderate tenderness diffusely throughout the upper, middle and lower distribution of the paraspinous muscles without specific trigger points, without radiation of pain. The patient has good rotational motion of the lumbar spine, both laterally as well as extension and flexion without significant difficulty. EXTREMITIES: Lower extremities show deep tendon reflexes 2+ in the patellar and tendo calcaneus tendons. Motor exam is 4 on a scale of 5 with right dorsiflexion, extension, quadriceps and hamstring flexion and 5/5 on the left. Peripheral pulses are 1+ posterior tibial. No peripheral edema is noted bilaterally. Lower extremities are warm and dry to touch, equal in color and appearance. SKIN: Shows warm and dry, good turgor. No edema. No sores, rashes or bruising throughout. Procedure: Procedure: Options discussed with the patient. Patient's old chart was reviewed as her current medication regimen updated current review of systems updated today as well. We will proceed with a lumbar epidural steroid injection today with fluoroscopic guidance. Risks were discussed including but not limited to: Bleeding, infection, possibility of epidural hematoma and subsequent neurological compromise, dural puncture, headaches, spinal cord and/or nerve damage, side effects of steroid medication, and poor results regarding pain control. Patient understands and wished to proceed. Patient return to clinic in approximate 2 weeks for follow-up, was counseled as to return appointment activity level and side effects to be aware of. Medication Injected: Med Injected: Procedure is lumbar epidural steroid injection under local anesthetic using st erile prep and drape at the L5-S1 level using C-arm fluoroscopic guidance in both AP and lateral views medications injected is 120 mg Depo-Medrol +10mL preservative-free normal saline and 2 mL contrast- condition at discharge is stable patient tolerated procedure well had no complications. Condition at Discharge: Condition at Discharge: Condition at discharge is stable, patient alert the procedure well and had no complications. JOSÉ MANUEL GAYTAN MD Mar 24, 2021 14:51
--- NOTE | 2021-03-24 14:52 | PDOC4 ---
Procedure Note: ICD 10 Code: ICD 10 Code: M54.16 M 40.07 M51.36 Procedure Note: Patient was consented for lumbar epidural steroid injection with fluoroscopic guidance. Risks were discussed including but not limited to: Bleeding, infection, possibility of epidural hematoma and subsequent neurological compromise, dural puncture, headaches, spinal cord and/or nerve damage, side effects of steroid medication, and poor results regarding pain control. Patient understands and wished to proceed. Procedure is lumbar epidural steroid injection under local anesthetic using minda rile prep and drape at the L 5 S1 level using C-arm fluoroscopic guidance in both AP and lateral views medications injected is 120 mg Depo-Medrol +10mL preservative-free normal saline and 2 mL contrast- condition at discharge is stable patient tolerated procedure well had no complications. JOSÉ MANUEL GAYTAN MD Mar 24, 2021 14:52
== END ==
LOC: PNCL 14:00
PROVIDERS: ATTEND Anesthesiology
DX: M51.17 Intervertebral disc disorders with radiculopathy, lumbosacral region (principal); M48.07 Spinal stenosis, lumbosacral region; F41.9 Anxiety disorder, unspecified; F32.9 Major depressive disorder, single episode, unspecified; Z85.6 Personal history of leukemia; Z98.890 Other specified postprocedural states
CPT/HCPCS: 62323; J1030; J1040; Q9965

== ENCOUNTER → 2021-04-16 | Outpatient (CLI) | payer OTHER ==
[~2021-04-16] MED LIST changes: -IOHEXOL 180 MG/ML 10 ML VIAL. ONE; -methylPREDNISolone ACETATE 40 MG/ML VIAL. ONE; -methylPREDNISolone ACETATE 80 MG/ML VIAL. ONE
--- NOTE | 2021-04-16 16:20 | KCIC ---
EXAM: Lumbar spine MRI without contrast. HISTORY: Pain. Resident extremity numbness. TECHNIQUE: Multiplanar, multisequence magnetic resonance imaging of the lumbar spine was performed wi thout contrast. COMPARISON: 09/27/2019 FINDINGS: There is mild lumbar scoliosis. There is no significant listhesis. There is degenerative en dplate remodeling with disc space narrowing, osteophytosis and disc desiccation at L5-S1. There is al so disc desiccation and endplate remodeling at L4-L5. There is no fracture or suspicious osseous lesi on. The conus terminates at L1. At L1-L2, L2-L3 and L3-L4, there is no stenosis. At L4-L5, there is a broad-based posterior central disc protrusion and annular tear superimposed on a disc bulge and endplate remodeling. There is mild left facet arthropathy. There is mild left greater than right foraminal stenosis. There is mild central canal stenosis and narrowing of the bilateral l ateral recesses. At L5-S1, there is a broad-based posterior central to right lateral recess disc protrusion and annula r tear superimposed on a disc bulge and endplate osteophytosis. There is mild left greater than right foraminal stenosis with abutment of the exiting left and possibly right L5 nerve roots. There is nestor rowing of the left lateral recess and abutment the traversing left S1 nerve root. There is mild centr al canal stenosis. IMPRESSION: 1. L4-L5: Slight interval increase in a broad-based posterior central disc protrusion superimposed on a stable disc bulge with posterior annular tear and endplate remodeling. There is is associated with mild right greater than left foraminal stenosis and mild central canal stenosis and narrowing of the lateral recesses. 2. L5-S1: Stable broad-based posterior central to right lateral recess disc protrusion and annular te ar superimposed on a disc bulge and endplate osteophytosis, resulting in mild left greater than right foraminal stenosis and narrowing of the left lateral recess with abutment of the traversing left S1 nerve root and mild central canal stenosis. Electronically signed by: Rufina Johnson MD (04/16/2021 4:18 PM) [id number]
== END ==
LOC: KCIC MRI 15:22
PROVIDERS: ATTEND Neurological Surgery
DX: M51.06 Intervertebral disc disorders with myelopathy, lumbar region (principal); M51.27 Other intervertebral disc displacement, lumbosacral region; M48.061 Spinal stenosis, lumbar region without neurogenic claudication; M25.78 Osteophyte, vertebrae; M41.86 Other forms of scoliosis, lumbar region; M54.16 Radiculopathy, lumbar region
CPT/HCPCS: 72148

== ENCOUNTER → 2021-04-23 | Outpatient (CLI) | payer OTHER ==
[~2021-04-23] MED LIST changes: +HYDR-2769 PO; +METH-562 PO; +OXYC-325 PO; +OXYC1TAB22 PO; +OXYC5TAB2 PO; +OXYC5TAB88 PO; +SENN1TAB62 PO
[2021-04-23 15:54] LABS: BASO % 1 % (0-3); EOS # 0.1 x10^3/uL (0.0-0.7); EOS % 2 % (0-3); HEMOGLOBIN 12.9 g/dL (12.0-15.5); LYMPH # 2.9 x10^3/uL (1.0-4.8); LYMPH % 54 % (24-48); MEAN CORPUSCULAR HEMOGLOBIN 30 pg (25-35); MEAN CORPUSCULAR HGB CONC 34 g/dL (31-37); MEAN CORPUSCULAR VOLUME 88 fL (79-100); MONO # 0.4 x10^3/uL (0.0-1.1); MONO % 8 % (0-9); NEUT # 1.9 x10^3/uL (1.8-7.7); NEUT % 35 % (31-73); PLATELET COUNT 317 x10^3/uL (140-400); RED BLOOD COUNT 4.31 x10^6/uL (3.50-5.40); RED CELL DISTRIBUTION WIDTH 13.9 % (11.5-14.5); WHITE BLOOD COUNT 5.4 x10^3/uL (4.0-11.0)
[2021-04-23 16:05] LABS: PROTHROMBIN TIME PATIENT 12.2 SEC (11.7-14.0)
[2021-04-23 16:52] LABS: ALBUMIN 3.4 g/dL (3.4-5.0); CALCIUM 8.4 mg/dL (8.5-10.1); CREATININE 0.8 mg/dL (0.6-1.0); GFR 80.3; POTASSIUM 3.8 mmol/L (3.5-5.1); TOTAL BILIRUBIN 0.3 mg/dL (0.2-1.0); TOTAL PROTEIN 6.7 g/dL (6.4-8.2)
[2021-04-24 01:11] LABS: HEMOGLOBIN A1C 5.2 % (4.8-5.6)
== END ==
LOC: SURGPAT 14:51
PROVIDERS: ATTEND Neurological Surgery
DX: Z01.818 Encounter for other preprocedural examination (principal); M51.16 Intervertebral disc disorders with radiculopathy, lumbar region; M48.061 Spinal stenosis, lumbar region without neurogenic claudication
CPT/HCPCS: 36415; 80053; 83036; 85025; 85610; 85730; 87641

== ENCOUNTER 2021-04-28 07:28 | Observation (INO) | payer OTHER ==
[2021-04-23 15:11] VITALS: BP 122/84
[2021-04-28] VITALS (13 sets, daily range): BP systolic 80–118; BP diastolic 30–71
[~2021-04-28] VITALS: Ht 167.6 cm; Wt 59.0 kg
[~2021-04-28 07:28] MED LIST changes: +IV RINGERS,LACTATED 1000ML 1,000 ML IV SCH; -METH-562 PO; +MORPHINE SULFATE 2 MG/ML INJ. IVP PRN; -OXYC-325 PO; -OXYC1TAB22 PO; -OXYC5TAB2 PO; -OXYC5TAB88 PO; +PROCHLORPERAZINE 10 MG/2 ML VIAL. IVP PRN; -SENN1TAB62 PO; +fentaNYL PF VIAL 100 MCG/2 ML VIAL IVP PRN
[2021-04-28] MEDS ORDERED: THROMBIN TOPICAL 20,000 UNIT SPRAY.SYRN KIT TP ONE (07:31)
[2021-04-28] MEDS ORDERED: GELATIN SPONGE SIZE 100. ONE (07:31)
[2021-04-28] MEDS ORDERED: BUPIVACAINE MPF 0.5% 30 ML VIAL. ONE (07:31)
[2021-04-28] MEDS ORDERED: LIDOCAINE 1%/EPI 1:100,000 20 ML VIAL. ONE (07:31)
[2021-04-28] MEDS ORDERED: fentaNYL PF VIAL 100 MCG/2 ML VIAL ONE ×2 (07:33→12:32)
[2021-04-28] MEDS ORDERED: MIDAZOLAM HCL/PF 2 MG/2 ML VIAL. ONE (07:33)
[2021-04-28] MEDS ORDERED: ROCURONIUM 50 MG/5 ML VIAL. ONE (07:33)
[2021-04-28] MEDS ORDERED: REMIFENTANIL 2 MG VIAL. IV ONE (07:33)
[2021-04-28] MEDS ORDERED: DEXAMETHASONE SOD PHOS 4 MG/ML VIAL ONE (07:34)
[2021-04-28] MEDS ORDERED: PROPOFOL 10 MG/ML (20ML) VIAL. IV ONE (07:34)
[2021-04-28] MEDS ORDERED: ONDANSETRON PF 4 MG/2 ML VIAL. ONE (07:34)
[2021-04-28] MEDS ORDERED: PROPOFOL 50 ML IV ONE ×2 (07:34→10:10)
[2021-04-28] MEDS ORDERED: LIDOCAINE 2% PF 5 ML VIAL. ONE (07:34)
[2021-04-28] MEDS ORDERED: VANCOMYCIN 1 GM VIAL. ONE (08:18)
[2021-04-28] MEDS ORDERED: ePHEDrine PF IN SALINE 50 MG/10 ML SYRINGE. IV ONE (08:54)
[2021-04-28] MEDS ORDERED: KETAMINE HCL IN NACL, ISO-OSM 50 MG/5 ML SYRINGE ONE (09:05)
[2021-04-28] MEDS ORDERED: PHENYLEPHRINE 10 MG/ML VIAL. ONE (09:06)
[2021-04-28] MEDS ORDERED: GLYCOPYRROLATE 1 MG/5 ML VIAL. ONE (09:28)
[2021-04-28] MEDS ORDERED: NEOSTIGMINE METHYLSULFATE 5 MG/5 ML SYRINGE. ONE (11:32)
[2021-04-28] MEDS ORDERED: DESFLURANE 61 TO 120 MINUTES IH ONE (11:35)
[2021-04-28] MEDS ORDERED: PHENYLEPHRINE in 0.9% NACL PF 1 MG/10 ML SYRINGE. IV ONE (11:47)
--- NOTE | 2021-04-28 12:07 | PDOC ---
BRIEF OPERATIVE NOTE Date: Apr 28, 2021 Pre-Op Diagnosis herniated disk L4-5, L5-S1, lumbar stenosis, lumbar radiculopathy, back pain Post-Op Diagnosis same Procedure Performed right L4-5 hemilamintomy with discectomy, left L5-S1 hemilaminotomy with discectomy Surgeon Torres Senior Telecommunications Consultant none Anesthesia Type: General Blood Loss 10mL Specimens Obtained disk and decompression Findings herniated disk and stenosis, neuromonitoring potentials improved upon completion of procedure compared to baseline Complications none apparent SARIKA TADEO MD Apr 28, 2021 12:07
[2021-04-28] MEDS ORDERED: HYDROmorphone 2 MG/ML VIAL ONE (12:18)
[2021-04-28] MEDS ORDERED: PROCHLORPERAZINE 10 MG/2 ML VIAL. ONE (12:18)
[2021-04-28] MEDS: HYDROmorphone 2 MG/ML VIAL IVP PRN ×4 (12:21→12:57)
[2021-04-28] MEDS ORDERED: OXYC-325 PO (12:26)
[2021-04-28] MEDS ORDERED: oxyCODONE/APAP 5/325 1 TAB TABLET PO PRN (12:30)
[2021-04-28] MEDS ORDERED: diphenhydrAMINE 50 MG/ML VIAL IV PRN (12:30)
[2021-04-28] MEDS ORDERED: MAG HYDROX/ALUMINUM HYD/SIMETH 30 ML ORAL.SUSP PO PRN (12:30)
[2021-04-28] MEDS ORDERED: ZOLPIDEM 5 MG TABLET. PO PRN (12:30)
[2021-04-28] MEDS ORDERED: fentaNYL PF VIAL 100 MCG/2 ML VIAL IVP PRN (12:30)
[2021-04-28] MEDS ORDERED: diphenhydrAMINE HCL 25 MG CAPSULE PO PRN (12:30)
[2021-04-28] MEDS ORDERED: MAGNESIUM HYDROXIDE 2,400 MG/30 ML ORAL.SUSP. PO PRN (12:30)
[2021-04-28] MEDS ORDERED: IV NORMAL SALINE 1000ML BAG 1,000 ML IV SCH (12:30)
[2021-04-28] MEDS ORDERED: NALOXONE 0.4 MG/ML VIAL. IV PRN ×2 (12:30)
[2021-04-28] MEDS ORDERED: CALCIUM CARBONATE 500 MG TAB.CHEW PO PRN (12:30)
[2021-04-28] MEDS ORDERED: 0.9 % SODIUM CHLORIDE 10 ML DISP.SYRIN. IV PRN (12:30)
[2021-04-28] MEDS ORDERED: ONDANSETRON PF 4 MG/2 ML VIAL. IVP PRN (12:30)
[2021-04-28] MEDS ORDERED: ACETAMINOPHEN 325 MG TABLET. PO PRN (12:30)
[2021-04-28] MEDS: fentaNYL PF VIAL 100 MCG/2 ML VIAL IVP PRN ×6 (12:37→18:35)
[2021-04-28] MEDS: GABAPENTIN 400 MG CAPSULE. PO SCH ×3 (13:00→21:31)
--- NOTE | 2021-04-28 13:30 | NUR ---
Pt. here from PACU via gurney. Pt. ambulated to bed with assist and to bathroom. Pt. very painful but able to fall asleep quickly when assisted back to bed. Lower back drsg CDI. Pt. denies dizziness and numbness.
[2021-04-28] MEDS: METHOCARBAMOL 750 MG TABLET PO SCH ×2 (14:00→21:31)
[2021-04-28] MEDS: FERROUS SULFATE 325 MG TABLET. PO SCH (16:29)
[2021-04-28] MEDS: CALCIUM CARB/VIT D3 500/200 TABLET. PO SCH (18:34)
[2021-04-28] MEDS: DOCUSATE SODIUM 100 MG CAPSULE. PO SCH (21:30)
[2021-04-28] MEDS: SENNOSIDES/DOCUSATE 8.6/50MG TABLET. PO SCH (21:31)
[2021-04-28] MEDS: oxyCODONE/APAP 5/325 1 TAB TABLET PO PRN (21:33)
[2021-04-29] MEDS: oxyCODONE/APAP 5/325 1 TAB TABLET PO PRN ×3 (01:40→10:14)
[2021-04-29 03:00] VITALS: BP 135/92
[2021-04-29] MEDS: fentaNYL PF VIAL 100 MCG/2 ML VIAL IVP PRN ×2 (03:15→09:09)
[2021-04-29 07:00] VITALS: BP 157/78
[2021-04-29] MEDS: METHOCARBAMOL 750 MG TABLET PO SCH (08:30)
[2021-04-29] MEDS: GABAPENTIN 400 MG CAPSULE. PO SCH (08:31)
[2021-04-29] MEDS: FERROUS SULFATE 325 MG TABLET. PO SCH (08:31)
[2021-04-29] MEDS: CALCIUM CARB/VIT D3 500/200 TABLET. PO SCH (08:31)
[2021-04-29] MEDS: SENNOSIDES/DOCUSATE 8.6/50MG TABLET. PO SCH (08:31)
[2021-04-29] MEDS: DOCUSATE SODIUM 100 MG CAPSULE. PO SCH (08:36)
[2021-04-29] MEDS ORDERED: MULTIVITAMIN with MINERAL TABLET. PO SCH (09:00)
--- NOTE | 2021-04-29 09:00 | NUR ---
Ambulated to bathroom with steady gait. Dressing d/i. No c/o leg pain only at incision site. Up in chair place ice pack to lower back. Cont. monitor.
--- NOTE | 2021-04-29 11:00 | PDOC ---
Date of Service: DATE: 04/29/21 TIME: 10:57 Progress Note: S: reports incisional pain, reports resolution of leg pain, ankle strength improved, did well with PT O: AF/VSS, NAD, GRIFFIN 5/5, sensation intact LT, dressing c/d/i A: POD 1 L4-5 and L5-S1 discectomies P: increase po pain control, d/c home today with standard post-op restrictions Justifications for Admission Other Justification SARIKA TADEO MD Apr 29, 2021 11:00
[2021-04-29] MEDS ORDERED: SENN1TAB62 PO (11:08)
[2021-04-29] MEDS ORDERED: OXYC1TAB22 PO (11:08)
[2021-04-29] MEDS ORDERED: METH-562 PO (11:08)
--- NOTE | 2021-04-29 11:50 | NUR ---
Discharge instructions given. Answered questions and concerns. Verbalized understanding. Pt discharge home escorted out by w/c accompanied by spouse.
[2021-05-01] MEDS ORDERED: OXYC5TAB88 PO (12:51)
--- NOTE | 2021-05-04 17:46 | OP ---
DATE OF SURGERY: 04/28/2021 SURGEON: Pablo Macdonald MD MANAGER SCIENTIFIC: None. PREOPERATIVE DIAGNOSIS: Lumbar and lumbosacral disk herniations at L4-L5 and L5-S1 with resultant stenosis, radiculopathy, and ankle weakness. POSTOPERATIVE DIAGNOSIS: Lumbar and lumbosacral disk herniations at L4-L5 and L5-S1 with resultant stenosis, radiculopathy, and ankle weakness. PROCEDURE: Right lumbar 4-5 hemilaminotomy with discectomy and the left L5-S1 hemilaminotomy with discectomy with intraoperative use of microscope and intraoperative neuromonitoring. ANESTHESIA: General. COMPLICATIONS: None intraprocedurally. INDICATIONS FOR THE PROCEDURE: The patient is a 40-year-old female who has bilateral lower extremity pain with some associated left greater than right, weakness in bilateral dorsiflexion. She has been refractory to nonsurgical treatments. She was noted to have disk herniations at L4-L5 and L5-S1 with mass effect on the adjacent neural elements. It was felt that surgical decompression would be appropriate and beneficial. Please refer to the patient's chart for additional detail. DESCRIPTION OF PROCEDURE: After informed consent was obtained, the patient was brought into the operating room. She was placed under general anesthesia. She was placed in the prone position on the Edy frame. All pressure points were checked and padded appropriately. An appropriate incision location was localized with fluoroscopy and the lumbar region was prepped and draped in the usual sterile fashion. Ancef was instituted as a prophylactic antibiotic. A vertical incision centered over the region of lumbar 4, 5 and lumbar 5, sacral 1 was made with a 10 blade scalpel. Monopolar electrocautery was utilized to dissect the avascular midline to the spinous processes at this location and first dissection was carried out across the lamina on the right at L4-L5 level was verified with fluoroscopy prior to the initiation of decompression and right L4-L5 hemilaminotomy was performed with a pneumatic drill as well as Kerrison rongeur. The underlying ligament was gently dissected free from the thecal sac and neural elements and removed with Kerrison rongeur. Gentle medial retraction of the neural elements was performed to expose the annulus, which was noted to be bulging. This was gently incised with an 11 blade scalpel. Disk material emerged under pressure. Discectomy was performed with the pituitary rongeur in a piecemeal fashion until the annulus was flat and decompression was achieved. Decompression was verified with direct visualization as well as gentle palpation with the [place] and a blunt nerve hook. Neuromonitoring potentials were also noted to be improved compared to baseline. Once discectomy at lumbar 4-5 was completed, dissection was carried out leftward across the lamina at L5-S1 with electrocautery and this level was verified with fluoroscopy prior to the initiation of decompression. A left-sided L5-S1 hemilaminotomy was performed with a pneumatic drill and a Kerrison rongeur. The underlying ligament was gently dissected away from the thecal sac with a blunt hook and gently removed with Kerrison rongeur. A prominent annulus was identified and this was gently opened with an 11 blade scalpel. Disk material emerged under pressure and discectomy was performed with the pituitary rongeur in a piecemeal fashion. Upon completion of this, the adjacent neural elements were noted to be very well decompressed. This was verified with direct visualization as well as gentle palpation with a nerve hook and a [place]fax. Neuromonitoring potentials also continued to improve. Upon completion of discectomy at L4-L5 and L5-S1, pristine hemostasis was achieved with FloSeal, cottonoids and some use of bipolar electrocautery. The wound was generously irrigated prior to the final closure. The muscle and fascia were reapproximated with 0 Vicryl in a simple interrupted fashion. Subcutaneous tissue was reapproximated with 2-0 Vicryl in interrupted inverted fashion. The skin was reapproximated with 4-0 Vicryl in a running subcuticular fashion. Mastisol and Steri-Strips were applied and the wound was dressed with Telfa, 4 x 4's, and Tegaderm. At the end the procedure, all needle and sponge counts were correct x2. The patient was extubated in the operating room and taken to recovery in stable condition. Neuromonitoring potentials were improved compared to baseline at the completion of the procedure. There were no intraprocedural complications apparent. ALBERT/MARQUES DR: Jason TID: [id number] DALILA
[2021-05-06] MEDS ORDERED: OXYC5TAB88 PO (12:53)
[2021-05-11] MEDS ORDERED: OXYC5TAB2 PO (10:07)
== END 2021-04-29 11:50 | disposition home or self-care (01) ==
LOC: SURG 07:28 → 4 NORTH 12:41
PROVIDERS: ADMIT Neurological Surgery; ATTEND Neurological Surgery
DX: M51.17 Intervertebral disc disorders with radiculopathy, lumbosacral region (principal); R53.1 Weakness
CPT/HCPCS: 63030; 63035; 81025; 88304; 96374; 96376; 97116; 97162; 97166; 97530; 97535; A4213; A4364; A4556; A4930; A6258; A6402; G0378; J0690; J0780; J1100; J1170; J2250; J2370; J2704; J2710; J3010; J3490; 76000; A4222; A4452; G0379; J2405; J3370

== ENCOUNTER → 2021-05-20 | Outpatient (CLI) | payer OTHER ==
[2021-04-29 07:00] VITALS: BP 157/78
[~2021-05-20] MED LIST changes: +GADOTERATE 7.5 MMOL/15ML VIAL. IVP ONE; -IV RINGERS,LACTATED 1000ML 1,000 ML IV SCH; +METH-562 PO; -MORPHINE SULFATE 2 MG/ML INJ. IVP PRN; +OXYC-325 PO; +OXYC15TA3 PO; +OXYC1TAB22 PO; +OXYC5TAB2 PO; +OXYC5TAB88 PO; -PROCHLORPERAZINE 10 MG/2 ML VIAL. IVP PRN; +SENN1TAB62 PO; -fentaNYL PF VIAL 100 MCG/2 ML VIAL IVP PRN
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
== END ==
LOC: KCIC MRI 13:49
PROVIDERS: ATTEND Neurological Surgery
DX: M51.16 Intervertebral disc disorders with radiculopathy, lumbar region (principal); M48.061 Spinal stenosis, lumbar region without neurogenic claudication
CPT/HCPCS: 72158; A9575

== ENCOUNTER → 2021-06-12 | Outpatient (CLI) | payer OTHER ==
[~2021-06-12] MED LIST changes: -GADOTERATE 7.5 MMOL/15ML VIAL. IVP ONE
[2021-06-12 13:01] LABS: BASO % 1 % (0-3); EOS # 0.2 x10^3/uL (0.0-0.7); EOS % 3 % (0-3); HEMOGLOBIN 13.5 g/dL (12.0-15.5); LYMPH # 2.7 x10^3/uL (1.0-4.8); LYMPH % 48 % (24-48); MEAN CORPUSCULAR HEMOGLOBIN 29 pg (25-35); MEAN CORPUSCULAR HGB CONC 33 g/dL (31-37); MEAN CORPUSCULAR VOLUME 89 fL (79-100); MONO # 0.5 x10^3/uL (0.0-1.1); MONO % 8 % (0-9); NEUT # 2.3 x10^3/uL (1.8-7.7); NEUT % 40 % (31-73); PLATELET COUNT 251 x10^3/uL (140-400); RED BLOOD COUNT 4.59 x10^6/uL (3.50-5.40); RED CELL DISTRIBUTION WIDTH 14.1 % (11.5-14.5); WHITE BLOOD COUNT 5.7 x10^3/uL (4.0-11.0)
[2021-06-12 13:10] LABS: PROTHROMBIN TIME PATIENT 12.1 SEC (11.7-14.0)
[2021-06-12 13:24] LABS: ALBUMIN 3.2 g/dL (3.4-5.0); CALCIUM 8.2 mg/dL (8.5-10.1); CREATININE 0.6 mg/dL (0.6-1.0); GFR 111.9; POTASSIUM 4.3 mmol/L (3.5-5.1); TOTAL BILIRUBIN 0.3 mg/dL (0.2-1.0); TOTAL PROTEIN 6.5 g/dL (6.4-8.2)
[2021-06-13 00:14] LABS: HEMOGLOBIN A1C 5.7 % (4.8-5.6)
== END ==
LOC: SURGPAT 12:26
PROVIDERS: ATTEND Neurological Surgery
DX: Z01.812 Encounter for preprocedural laboratory examination (principal); M54.16 Radiculopathy, lumbar region; M51.06 Intervertebral disc disorders with myelopathy, lumbar region
CPT/HCPCS: 36415; 80053; 83036; 85025; 85610; 85730; 87641

== ENCOUNTER 2021-06-16 10:45 | Day surgery (SDC) | payer OTHER ==
[2021-06-12 13:02] VITALS: BP 105/56
[2021-06-15 14:50] VITALS: BP 105/56
[~2021-06-16] VITALS: Ht 167.6 cm; Wt 58.6 kg
[~2021-06-16 10:45] MED LIST changes: +0.9 % SODIUM CHLORIDE 20 ML VIAL. IJ ONE; +BUPIVACAINE MPF 0.5% 30 ML VIAL. ONE; +DEXAMETHASONE SOD PHOS 4 MG/ML VIAL ONE; +GELATIN SPONGE SIZE 100. ONE; +HYDROmorphone 2 MG/ML VIAL IVP PRN; +IV RINGERS,LACTATED 1000ML 1,000 ML IV SCH; +LIDOCAINE 1%/EPI 1:100,000 20 ML VIAL. ONE; +LIDOCAINE 2% PF 5 ML VIAL. ONE; +MIDAZOLAM HCL/PF 2 MG/2 ML VIAL. ONE; +NEOSTIGMINE METHYLSULFATE 5 MG/5 ML SYRINGE. ONE; +ONDANSETRON PF 4 MG/2 ML VIAL. ONE; +PHENYLEPHRINE 10 MG/ML VIAL. ONE; +PROCHLORPERAZINE 10 MG/2 ML VIAL. IVP PRN; +PROPOFOL 10 MG/ML (20ML) VIAL. IV ONE; +PROPOFOL 100 ML IV ONE; +REMIFENTANIL 1 MG VIAL. IV ONE; +ROCURONIUM 50 MG/5 ML VIAL. ONE; +SEVOFLURANE > 120 MINUTES. IH ONE; +THROMBIN TOPICAL 20,000 UNIT SPRAY.SYRN KIT TP ONE; +fentaNYL PF VIAL 100 MCG/2 ML VIAL IVP PRN; +fentaNYL PF VIAL 100 MCG/2 ML VIAL ONE
[2021-06-16 11:17] VITALS: BP 101/63
[2021-06-16] MEDS ORDERED: HYDROmorphone 2 MG/ML VIAL ONE (11:57)
[2021-06-16] MEDS ORDERED: VANCOMYCIN 1 GM VIAL. ONE (12:58)
--- NOTE | 2021-06-16 13:57 | PDOC ---
BRIEF OPERATIVE NOTE Date: Jun 16, 2021 Pre-Op Diagnosis recurrent disk herniations L4-5 and L5-S1, lumbar radiculopathy, lumbar stenosis Post-Op Diagnosis same Procedure Performed redo discectomies L4-5 and L5-S1 Surgeon Torres Oracle Ebs Developer none Anesthesia Type: General Blood Loss 10mL Specimens Obtained disk and decompression Findings recurrent disk herniations, lumbar stenosis, scar tissue, neuromonitoring at least baseline throughout Complications none apparent SARIKA TADEO MD Jun 16, 2021 13:57
[2021-06-16] MEDS ORDERED: METH-562 PO (14:04)
[2021-06-16] MEDS ORDERED: fentaNYL PF VIAL 100 MCG/2 ML VIAL ONE (14:31)
[2021-06-16] MEDS: fentaNYL PF VIAL 100 MCG/2 ML VIAL IVP PRN ×2 (14:34→14:44)
[2021-06-16] MEDS ORDERED: MORPHINE SULFATE 2 MG/ML INJ. ONE (14:35)
[2021-06-16] MEDS: MORPHINE SULFATE 2 MG/ML INJ. IVP PRN ×2 (14:36→14:50)
[2021-06-16] MEDS ORDERED: OXYC15TA3 PO (14:39)
[2021-06-16] MEDS ORDERED: oxyCODONE IR 5 MG TABLET PO PRN (14:45)
[2021-06-16 14:55] VITALS: BP 112/57
--- NOTE | 2021-06-22 10:32 | OP ---
DATE OF SURGERY: 06/16/2021 SURGEON: Pablo Macdonald MD CLINICAL EVALUATOR: None. PREOPERATIVE DIAGNOSIS: Recurrent disk herniations at L4-L5 and L5-S1 with lumbar radiculopathy and lumbar stenosis. POSTOPERATIVE DIAGNOSIS: Recurrent disk herniations at L4-L5 and L5-S1 with lumbar radiculopathy and lumbar stenosis. PROCEDURES: Redo hemilaminotomies with discectomies at lumbar 4-5 and lumbar 5, sacral 1, neuromonitoring, use of microscope ANESTHESIA: General. COMPLICATIONS: None intraprocedurally. INDICATIONS FOR THE PROCEDURE: The patient is a 40-year-old female who recently underwent a hemilaminotomies with discectomies at L4-L5 and L5-S1. 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 Repeat imaging was obtained showing recurrent disk herniations at the aforementioned levels. It was felt that a decompression, discectomy would be appropriate. Please refer to the patient's chart for additional detail. DESCRIPTION OF PROCEDURE: After informed consent was obtained, the patient was brought to the operating room. She was placed under general anesthesia. She was placed in the prone position. All pressure points were checked and padded appropriately. Ancef was utilized as a prophylactic antibiotic. The lumbar region was prepped and draped in the usual sterile fashion. Her previous midline incision was opened with #10 blade scalpel. Monopolar electrocautery was utilized to dissect the avascular midline to the spinous processes of lumbar 4-5 and sacral 1. Dissection was carried out through the previous approaches through the scar tissue to approach the prior hemilaminotomies at L4-L5 and L5-S1. These levels were verified with fluoroscopy prior to the initiation of the decompression/discectomy. The microscope was then utilized. Scar tissue was gently dissected free from the margin of the prior hemilaminotomies at both locations with a curette as well as a [place] rongeur. The hemilaminotomies at these locations were extended slightly with [place] rongeurs. Neural elements were gently retracted medially and discectomies were performed at each level with pituitary rongeurs. Upon completion of decompression at each location, the neural elements were noted to be well decompressed, verified with direct visualization as well as gentle palpation with a [place] and a curved ball probe. Neuromonitoring potentials remained at least baseline throughout the procedure. The wound was generously irrigated with antibiotic irrigation prior to final closure. Pristine hemostasis was achieved with FloSeal, cottonoids and some use of bipolar electrocautery. Muscle and fascia were then reapproximated with 0 Vicryl in simple interrupted fashion. Subcutaneous tissue was reapproximated with 2-0 Vicryl in interrupted inverted fashion. The skin was reapproximated with 4-0 Vicryl in a running subcuticular fashion. Mastisol and Steri-Strips were applied and the wound was dressed with Telfa and Tegaderm. At the end of procedure, all needle and sponge counts were correct x 2. The patient was extubated in the operating room and taken to recovery in stable condition. There were no intraprocedural complications apparent. RAVINDER DR: Jason TID: [id number]
[2021-07-07] MEDS ORDERED: OXYC15TA3 PO (09:42)
== END 2021-06-16 15:50 | disposition home or self-care (01) ==
LOC: SURG 10:45
PROVIDERS: ATTEND Neurological Surgery
DX: M51.17 Intervertebral disc disorders with radiculopathy, lumbosacral region (principal); M48.061 Spinal stenosis, lumbar region without neurogenic claudication; G47.30 Sleep apnea, unspecified; E66.9 Obesity, unspecified; F41.9 Anxiety disorder, unspecified; F32.9 Major depressive disorder, single episode, unspecified; F17.210 Nicotine dependence, cigarettes, uncomplicated; Z90.49 Acquired absence of other specified parts of digestive tract; Z98.890 Other specified postprocedural states; Z79.899 Other long term (current) drug therapy; Z91.040 Latex allergy status; Z88.8 Allergy status to other drugs, medicaments and biological substances
CPT/HCPCS: 36415; 63030; 63035; 81025; 86850; 86900; 86901; 97161; A4213; A4364; A4930; A6254; A6258; A6402; J0690; J1100; J1170; J2250; J2270; J2370; J2405; J2704; J2710; J3010; J3370; J3490; 76000; 88304; 88311; A4223; A4452